=== PATIENT | male | born 1945 | race Caucasian/White ===

== ENCOUNTER 2023-09-28 02:40 | Inpatient (IN) | payer MEDICARE, OTHER, SELFPAY ==
[2023-09-27 22:27] VITALS: BP 80/58
[2023-09-27 22:53] VITALS: BP 111/62
[2023-09-27 22:58] VITALS: BMI 37.0
--- NOTE | 2023-09-27 22:58 | ED.GENMED ---
History of Present Illness
General
Chief Complaint: Weakness
Source: patient and family
Time Seen by Provider: 09/27/23 22:41
Travel History
Have you had any contact with someone who has COVID-19?: No
Do you have any symptoms of coronavirus? Fever > 100 degrees, chills, cough, shortness of breath, sore throat, loss of taste or smell, muscle aches, or headache?: No
History of Present Illness
History of Present Illness:
This patient is a 78-year-old male presents emergency department with complaints of diarrhea that started on Saturday and continues, noted to be 'red-tinged' after have a flavored water ice, no clots or obvious blood. He also notes increasing
malaise/fatigue and intermittent dizziness associated with dyspnea. He denies chest pain, back pain, headache, neck pain. He does note mild lower abdominal comfort that started on Saturday and got worse today. This is without radiation,
exacerbating, relieving factors. He denies urinary symptoms, nausea, vomiting. He has had anorexia over the last few days. When asked about URI symptoms he states that he has had a fever, chills, and intermittent cough that is nonproductive. No
hemoptysis.
Past History
Past History
ED Past Medical History: Arrthythmia, GERD, HTN, Hypercholesterolemia, Other (Chronic kidney disease, Pyelonephritis, Kidney stones, SBO, Right kidney nonfunctioning,) and Other (Gilbert's disease)
ED Past Surgical History: Other (Gastric bypass, cardiac ablation)
Social History
Tobacco: Former smoker
Alcohol: None
Drug: None
Personal:
Living: with family
Family History
Family History: Negative Diabetes, Hypertension or CAD
Phy Exam
Physical Exam
Physical Exam:
GENERAL: Alert but generally weak appearing, in no apparent distress
EYE: pupils equal and reactive, conjunctive a pale
NECK: Supple, no significant adenopathy.
ENT: o/p clr, mm very dry
CARDIAC: Regular rate and rhythm .
LUNGS: Clear breath sounds bilaterally, no acute respiratory distress, no wheezes/rales/rhonchi, no active cough noted
ABDOMEN: Soft, minimal lower midline abdominal tenderness, no r/g, no cvat
NEUROLOGICAL: Alert and oriented, no focal neuro deficits
SKIN: Warm and dry, skin intact.
MUSCULOSKELETAL: No edema, well perfused.
PSYCH: Normal and appropriate interaction.
Rectal RN present, daughter went into the bathroom to give him privacy while we performed, nontender, no active bleed, heme positive
Course
Orders/Labs/Results
Orders:
Orders
09/27/23 22:56
Electrocardiogram (*1) Stat
Reason for Study: Other
Other Reason for Exam: GI Bleed
Cardiac Monitoring- Treatment ONCE
EKG- Treatment ONCE
Urinalysis Reflex To Culture Urgent
Date Specimen was Collected: 09/28/23
Time Specimen was Collected: 01:04
0.9% Sodium Chloride 1000 ml [Nss] 1,000 ml IV NOW STA
CR Chest Portable - 1 View Urgent
Comment:
Reason For Exam: sob
Reason Study Needs to be Portable: Patient Unstable
Pulse Ox/cont/shift [RESP] Stat
Quantity: 1
09/27/23 22:57
Stool Culture Urgent
SANDRA Source: Feces/Stool
Specimen Description:
09/27/23 22:58
CT Abd/pel Without Iv Or Oral Urgent
Comment:
Reason For Exam: abd pain, d
09/27/23 23:04
Complete Blood Count/No Diff Urgent
Comprehensive Metabolic Panel Urgent
NT-proBNP Urgent
Troponin I Urgent
Blood Culture Q30M
SANDRA Source: Blood/Venous
Specimen Description:
09/27/23 23:12
Type+Screen Urgent
TSH Urgent
09/27/23 23:13
COVID-19 Antigen Urgent
Source: Nasal Swab
Lactic Acid Q4H
Comment: CANCEL 2nd LACTIC ACID IF 1st LACTIC ACID IS LESS THAN 2
Influenza A+B Rapid Molecular Urgent
SANDRA Source: Nasal Swab
Specimen Description:
09/27/23 23:45
Blood Culture Q30M
SANDRA Source: Blood/Venous
Specimen Description:
09/28/23 00:56
Piperacillin/Tazo 3.375 Gram [Zosyn] 3.375 gram in 50 ml IV NOW
09/28/23 01:00
0.9% Sodium Chloride 500 ml [Nss] 500 ml IV 150 mls/hr
09/28/23 01:06
Urine Microscopic Reflex Cult Urgent
09/28/23 02:23
Admit/Transfer Patient As Directed
Co-Sign Provider:
Level of Care: Inpatient admission
Assign to:: IMU- Intermediate Care
Physician / Group: Mynor
Diagnosis: Perforated Appendicitis / Diverticulitis, MATT
Reason for Hospitalization: Perforated Appendicitis / Diverticulitis, MATT
Expected length of stay greater than two midnights?: Yes
ELOS- Estimated Length of Stay in days: 4
I certify the patient meets the requirements for IP care: Yes
Alprazolam [Xanax] 1 mg PO NOW STA
09/28/23 02:25
Code Status As Directed
Resuscitation Status: Full Code
09/28/23 03:58
Alprazolam [Xanax] 1 mg PO HS PRN
HYDROmorphone [Dilaudid] 0.5 mg IV Q4HPRN PRN
Lactated Ringers [Lr] 1,000 ml IV 100 mls/hr
Ondansetron Injectable [Zofran] 4 mg IV Q6HPRN PRN
09/28/23 03:58
Consult Notification Routine
Specialty to Notify: Nephrology
NEPHROLOGY CONSULT Routine
Consulting Provider: Joanne Tate
Was physician already notified: No
Reason for consult: MATT on CKD
SURGICAL CONSULT Routine
Consulting Provider: Deng Saucedo
Was physician already notified: Yes
Reason for consult: Perforated Appendicitis / Diverticulitis
Activity As Directed
Activity Level: Bedrest
Bladder Scan As Directed
Follow Bladder Retention/Intermittent Cath Algorithm?: Yes
PRN if no void in __ hours: 6
Frequency: Per Retention Algorithm
If Bladder Scan Result >: 400
then:: Straight cath
EKG with chest pain [ECG as needed] As Directed
ECG as needed for:: Chest Pain
I/O [Intake/ Output] As Directed
Frequency: Per unit guidelines
Pneumatic Compression Sleeves As Directed
Type: Knee high
Straight Cath As Directed
Frequency: Per Retention Algorithm
Additional Instructions: straight cath as needed per acute urinary retention algorithm for 24 hrs
Additional Instructions: for bladder scan greater than 400 mL
Vital Signs As Directed
Frequency: Per unit guidelines
Weight As Directed
Frequency: Daily
Oxygen Therapy [O2 Therapy] [RESP] Routine
Titrate/Wean O2 to maintain O2 sat greater than (%): 94
DX Deep Vein Thrombosis Video Routine
09/28/23 04:27
Basic Metabolic Panel IN AM
Complete Blood Count/No Diff IN AM
LFT [Mjslo-Ewtm-Hjoppjg] IN AM
Magnesium IN AM
Phosphorus IN AM
09/28/23 08:00
Heparin 5,000 units SC Q8
Pantoprazole [Protonix IV] 40 mg IV DAILY
09/28/23 09:00
Piperacillin/Tazo 2.25 Gram [Zosyn] 2.25 grams in 50 ml IV Q8H
09/29/23 Breakfast
NPO
Allow oral meds: Yes
Allow clear liquids: Sips of Clears
Abnormal Lab Results
09/27/23 09/28/23
23:04 01:06
WBC 11.6 H 10^3/uL
(4.8-10.8)
RBC 3.67 L 10^6/uL
(4.70-6.10)
Hgb 12.1 L g/dL
(13.0-18.0)
Hct 34.1 L %
(39.0-52.0)
MCH 33.0 H pg
(27.0-31.0)
MPV 10.9 H fL
(7.4-10.4)
Potassium 3.4 L mmol/L
(3.5-5.1)
Carbon Dioxide 16 L mmol/L
(22-30)
BUN 38 H mg/dl
(9-20)
Creatinine 6.1 H* mg/dL
(0.7-1.3)
Glucose 106 H mg/dl
(70-99)
Calcium 8.2 L mg/dl
(8.4-10.2)
Total Bilirubin 1.6 H mg/dl
(0.2-1.3)
Albumin 3.4 L g/dl
(3.5-5.0)
Urine Ketones Trace A
(Negative)
Ur Occult Blood Reflex 2+ A
(Negative)
Urine Bacteria (Reflex) Few A
(Negative)
09/27/23 23:04
09/27/23 23:04
Vital Signs
Initial and Last Documented VS:
Initial Vital Signs
Temp Pulse Resp BP Pulse Ox
98.2 F 92 28 80/58 98
09/27/23 22:27 09/27/23 22:27 09/27/23 22:27 09/27/23 22:27 09/27/23 22:27
Last Documented Vital Signs
Temp Pulse Resp BP Pulse Ox
98.5 F 84 32 96/56 96
09/28/23 04:25 09/28/23 06:21 09/28/23 06:21 09/28/23 06:21 09/28/23 06:21
*Critical Care Note
Total Time (30-74mins, 75-104mins- exclusive of procedures): Not Applicable
Update Note
Update Note:
Patient presents to the Emergency Department with dyspnea, fatigue, lightheadedness, diarrhea
Number and Complexity of Problems Addressed at the Encounter
� Chronic conditions affecting care:
� Acute Exacerbation and/or Progression of Chronic Illness:
� Differential Diagnosis includes: But not limited to sepsis, GI bleed, renal failure, dehydration, etc. etc.
Amount and/or Complexity of Data to be Reviewed and Analyzed
� I performed an independent evaluation of and my interpretation is:
EKG:nsr, nl rate, no acute ischemia, PVC noted
CT: vebal report CT shows perforation, appendix measuring 10 mm, rads suggests either (1) appendix perf (2) appendix diverticular perfor or (3) diverticulitis perf. (1255 am)
Xrays:cxr nad
Laboratory Studies:Cr elevation (reportedly at baseline), expected acidosis, K near nl, worsening baseline anemia.
Other:
� Review of other/old records reveals: H&P from November 2021 when patient had ablation noted
� Clinical information was obtained by an independent historian: Daughter who is bedside
� Prescriptions/Medications Considered but not given:
� Further testing considered but not performed:
Risk of Complications and/or Morbidity or Mortality of Patient Management
� Social determinants of health affecting care:
� Discussion with other providers (PCP, Hospitalists, Consultants, etc):
� Escalation of care including admission/observation vs risk of discharge considered:Reassessment, pt feels better, although still with mild abd ttp (no r/g). Ct noted. Text immed sent to Dr Saucedo from surgery. In meantime, I
will start abx, continue ivf and closemonitoring. He recommends zosyn,npo,admit hospitalist. Dr Fong aware. Pt and daughter updated.
ED Attending Note
-
Portions of this chart may have been created with voice recognition software.� Occasional wrong word or��sound alike� substitutions may have occurred due to the inherent limitations of voice recognition software.
Discharge Plan
Departure
Patient Disposition: Admit
Date of Disposition: 09/28/23
Time of Disposition: 00:58
Admit to: Telemetry
Admit to doctor: mynor
Presentation/result/management discussed w/ accepting MD/DO: Hospitalist
Condition: Fair
Discharge Problem:
Bowel perforation
Interventions
Interventions:
*Risk Screen - Suicide Last Done: 09/28/23 04:32
*General Assessment Last Done: 09/27/23 23:20
*Neglect/Abuse Screening Last Done: 09/27/23 23:20
ED- Fall Risk Assessment Last Done: 09/27/23 23:20
*ED COVID-19 Vaccine History Last Done: 09/28/23 04:32
*Nursing Disposition Last Done: 09/28/23 03:52
ED- Cardiac Assessment Last Done: 09/27/23 23:20
ED- Neurological Assessment Last Done: 09/27/23 23:20
ED- Pulmonary Assessment Last Done: 09/27/23 23:20
Discharge Date and Time
Discharge Date/Time: 09/28/23 03:53
[2023-09-27 23:00] VITALS: BP 111/61
[2023-09-27] MEDS: NSS 1000 ML IV (23:01)
[2023-09-27 23:09] LABS: Hematocrit 34.1 % (39.0-52.0); Hemoglobin 12.1 g/dL (13.0-18.0); Mean Corp Hgb Conc. 35.5 g/dL (33.0-37.0); Mean Corpuscular Volume 92.9 fL (80.0-94.0); Mean Platelet Volume 10.9 fL (7.4-10.4); Platelet Count 166 10^3/uL (130-400); Red Blood Cell Count 3.67 10^6/uL (4.70-6.10); Red Cell Dist. Width 13.3 % (11.5-14.5); White Blood Cell Count 11.6 10^3/uL (4.8-10.8)
[2023-09-27 23:26] VITALS: BP 108/60
[2023-09-27 23:27] LABS: ALT (SGPT) 15 U/L (0-50); AST (SGOT) 21 U/L (17-59); Albumin 3.4 g/dl (3.5-5.0); Alkaline Phosphatase 114 U/L (38-126); Blood Urea Nitrogen 38 mg/dl (9-20); Calcium 8.2 mg/dl (8.4-10.2); Carbon Dioxide 16 mmol/L (22-30); Chloride 106 mmol/L (98-107); Estimated Creatinine Clearance 14 ml/min; Glucose 106 mg/dl (70-99); Potassium 3.4 mmol/L (3.5-5.1); Sodium 135 mmol/L (135-145); Total Bilirubin 1.6 mg/dl (0.2-1.3); Total Protein 6.4 g/dl (6.3-8.2); eGFR 8.91
[2023-09-27 23:34] LABS: Lactic Acid 1.2 mmol/L (0.7-2.0)
[2023-09-27 23:34] LABS: NT-proBNP 3980 pg/ml; Troponin I 0.017 ng/ml
[2023-09-27 23:38] LABS: COVID-19 Antigen Negative (Negative)
[2023-09-28] VITALS (23 sets, daily range): BP systolic 0–126; BP diastolic 50–80; BMI 37.2
[2023-09-28] MEDS: ZOSYN 50 IV ×3 (01:07→16:08)
[2023-09-28] MEDS: NSS 500 IV (01:16)
[2023-09-28 01:25] LABS: Urine Albumin Trace (Neg - Trace); Urine Bilirubin Negative (Negative); Urine Character Clear (Clear); Urine Color Yellow; Urine Glucose Negative (Negative); Urine Ketone Trace (Negative); Urine Leukocyte Negative (Negative); Urine Nitrite Negative (Negative); Urine Occult Blood 2+ (Negative); Urine Specific Gravity 1.015 (<1.030); Urine Urobilinogen Negative (Neg - 1+)
[2023-09-28 01:34] LABS: Urine Squamous Cell 0-2 /LPF (Few)
[2023-09-28 01:36] LABS: Urine Bacteria Few (Negative); Urine Red Blood Cell None Seen /HPF (0-2)
--- NOTE | 2023-09-28 02:30 | HPS.HSE ---
Family Physician
-
Family Physician: NOT KNOW UNKNOWN - PT DOES
Chief Complaint
-
Fevers / chills / fatigue
History of Present Illness
Patient is a 78y M with PMH significant for A-Fib, CKD and obesity who presents to ED complaining of feeling poorly for the past 5 days or so. Patient states that he started on Saturday with fatigue, poor appetite, lightheadedness and intermittent
fevers. His symptoms have waxed and waned throughout much of the week. Today he noted some very low abdominal discomfort as well as some watery diarrhea.
Patient was encouraged by his family to present to the ED for evaluation. Work up in the ED reveals evidence of perforated appendicitis or diverticulitis.
Medical History
Past Medical History
Past Medical History: Reports Other
Additional Past Medical History:
CKD V
Paroxysmal Atrial Fibrillation
Hypertension
Nephrolithiasis
Solitary Functioning Kidney
Obesity
Anxiety / Insomnia
Past Surgical History: Reports Other
Additional Past Surgical History:
Gastric Bypass ([place])
Open Kidney Stone Removal
Cholecystectomy
PPM Placement
PVI Ablation
Bilateral TKA
Left Ankle ORIF
Social History
Tobacco: Non-smoker
Alcohol: None
Drug: None
Family History
Family History: Not pertinent
Allergies / Home Medications
Allergies reflects when Allergies were last updated in [employer].
Home Medications with original date entered in [employer]
Allergy/Medication List:
Allergies
Allergy/AdvReac Type Severity Reaction Status Date / Time
bee venom protein (honey bee) Allergy Anaphylaxis Verified 09/27/23 22:27
levofloxacin [From Levaquin] Allergy TORE Verified 09/27/23 22:27
ACHILLES
TENDON
oxycodone Allergy NAUSEA/VOMI Verified 09/27/23 22:27
TING
tramadol Allergy Nausea Verified 09/27/23 22:27
seasonal Allergy nasal Uncoded 09/27/23 22:27
congestion
Home Medications
doxazosin 2 mg tablet 4 mg PO HS 09/06/10
potassium citrate 10 mEq (1,080 mg) tablet,extended release 10 meq PO BID Supplement 09/06/10
cetirizine 10 mg tablet 20 mg PO DAILY Allergies 11/26/14
omeprazole 40 mg capsule,delayed release 40 mg PO DAILY Gastrointestinal issue 10/14/17
Phospha 250 Neutral 1 tab PO DAILY 11/29/20
alprazolam 1 mg tablet 2 mg PO HS Mental Health/Anxiety 11/29/20
cholecalciferol (vitamin D3) 25 mcg (1,000 unit) capsule (Vitamin D3) 2,000 unit PO DAILY Supplement 11/29/20
pravastatin 10 mg tablet 10 mg PO HS High cholesterol 10/17/21
rivaroxaban 15 mg tablet (Xarelto) 15 mg PO QPM Blood clot prevention/tx 10/17/21
Review of Systems
-
History Source: Patient
A 12 point ROS was completed and negative except as noted: Yes
Constitutional: Reports Fever, Fatigue and Chills
EENT: Denies Sore Throat
Respiratory: Denies Cough or Trouble Breathing
Cardiac: Denies Chest Pain or Palpitations
Abdomen/GI: Reports Abdominal Pain, Diarrhea and Anorexia; Denies Nausea, Vomiting, Bloody Stools or Black Stools
: Reports Other (Decreased urination.); Denies Dysuria, Frequency or Flank Pain
Musculoskeletal: Reports Edema; Denies Joint Pain
Neurological: Reports Dizzy; Denies Headache
Psych: Denies Depression or Anxiety
Physical Exam
Vital Signs
Vital Signs
Temp Pulse Resp BP Pulse Ox
98.2 F 75 14 102/69 96
09/27/23 22:27 09/28/23 01:41 09/28/23 01:41 09/28/23 01:39 09/28/23 01:41
Physical Exam
General: Other (78y M in no acute distress.)
HEENT: Moist mucous membranes, PERRLA and Other (Thick neck.)
Respiratory: Clear; No Wheezes, Rales or Rhonchi
Cardiac: S1/S2 and Regular Rhythm; No Murmur
GI: Other (Obese. Abdomen is soft. Bowel sounds are present. Tenderness in RLQ / suprapubic area without rebound / guarding.)
Musculoskeletal: No Clubbing, No Cyanosis and No Edema
Neuro: AO x 3
Laboratory Results
-
09/27/23 23:04
09/27/23 23:04
Laboratory Results
Lactic Acid Cancelled 09/28/23 03:00
Total Bilirubin 1.6 mg/dl (0.2-1.3) H 09/27/23 23:04
AST 21 U/L (17-59) 09/27/23 23:04
ALT 15 U/L (0-50) 09/27/23 23:04
Alkaline Phosphatase 114 U/L (38-126) 09/27/23 23:04
Troponin I 0.017 ng/ml 09/27/23 23:04
Impression/Plan
-
A/P: Patient is a 78y M with PMH significant for PA-Fib, CKD and obesity who presents to ED complaining of feeling poorly for about one week.
Perforated Appendicitis v Diverticulitis
- Admit for further evaluation and treatment.
- IV abx with renally-dosed Zosyn.
- Surgery consulted for further evaluation - will likely require operative intervention / appendectomy.
- Supportive care with IVFs, pain control, etc.
MATT on CKD V
Non-Functioning Right Kidney
Mild Hypokalemia
Non-Gapped Metabolic Acidosis
- SCr = 6.1 with recent baseline of 5.1 (July) and fairly rapid progression over the past 6 months (previously 2.1).
- IVF support as noted above.
- Treat underlying infectious process.
- Nephrology evaluation for additional recommendations.
- Avoid nephrotoxic agents and endeavor to avoid hypotension.
- Adjust IVFs for improvement in labs / lytes.
- Follow for return to baseline.
Paroxysmal Atrial Fibrillation
- Stable. PPM in place. Patient on no meds for chronic rate / rhythm control.
- Hold Xarelto acutely for possible OR.
- Monitor on tele.
Anxiety / Insomnia
- Stable. Continue nightly alprazolam PRN at lower dose.
- Patient notes that he has been taking 2mg of alprazolam nightly for the past 20 years.
Obesity due to excess calories
- s/p prior gastric bypass. More recent weight gain (during COVID).
- Affects all aspects of care.
- Encourage healthy diet / increased activity with goal of weight loss.
DVT Prophylaxis: Subcut Heparin
Code Status: Full
[2023-09-28] MEDS: XANAX 1 MG PO ×2 (02:33→22:57)
--- NOTE | 2023-09-28 03:58 | PTCARENOTE ---
Received pt from ED via stretcher. Pt AAOx3 but drowsy. States pain level is 3/10 when not moving. Incontinent of liquid stool. Abd is tender on palpation; non distended. VSS at this time. Resting in bed with call beltran in reach.
[2023-09-28] MEDS: LR 1000 IV (04:10)
[2023-09-28 04:45] LABS: Hematocrit 30.1 % (39.0-52.0); Hemoglobin 10.3 g/dL (13.0-18.0); Mean Corp Hgb Conc. 34.2 g/dL (33.0-37.0); Mean Corpuscular Hgb 32.5 pg (27.0-31.0); Mean Platelet Volume 11.2 fL (7.4-10.4); Platelet Count 147 10^3/uL (130-400); Red Blood Cell Count 3.17 10^6/uL (4.70-6.10); Red Cell Dist. Width 12.8 % (11.5-14.5); White Blood Cell Count 11.7 10^3/uL (4.8-10.8)
[2023-09-28 05:21] LABS: ALT (SGPT) 13 U/L (0-50); AST (SGOT) 20 U/L (17-59); Albumin 2.6 g/dl (3.5-5.0); Alkaline Phosphatase 89 U/L (38-126); Blood Urea Nitrogen 38 mg/dl (9-20); Calcium 7.8 mg/dl (8.4-10.2); Carbon Dioxide 16 mmol/L (22-30); Chloride 109 mmol/L (98-107); Direct Bilirubin 0.6 mg/dl (0.0-0.4); Estimated Creatinine Clearance 15 ml/min; Glucose 95 mg/dl (70-99); Magnesium 1.9 mg/dl (1.6-2.3); Phosphorus 4.8 mg/dl (2.5-4.5); Potassium 3.3 mmol/L (3.5-5.1); Sodium 135 mmol/L (135-145); Total Bilirubin 1.6 mg/dl (0.2-1.3); Total Protein 5.2 g/dl (6.3-8.2); eGFR 9.87
[2023-09-28] MEDS: KCL 260 MEQ IV (06:29)
[2023-09-28] MEDS: PROTONIX IV 40 MG IV (08:45)
--- NOTE | 2023-09-28 08:47 | W.CON.NEPH ---
Consultation
-
Date/Time Consultation Requested: 09/28/23 3:58AM
Date/Time Consultation Performed: 09/28/23 1:23PM
Requesting Provider: Chidi Fong
Performing Provider: Joanne Tate
Reason for Consultation: MATT on CKD
Medical History
-
Chief Complaint: MATT on CKD
History of Present Illness:
Mr. Henriquez is a 78YOM with PMH of CKD, HTN, kidney stones, R atrophic kidney, AFIB, sleep apnea (on CPAP) who presents to the hospital for diarrhea. He was found to have an MATT on CKD for which we are consulted.
Has been spending a weekend in [place], developed diarrhea and fevers. as high as 103 per the patient.
The patient follows with Dr. Handley. His Cr has been ranging from 4-5 in the outpatient setting. 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 Biopsy was considered but eventually not pursued. He has a solitary
functioning kidney. He did state that he would accept dialysis if need arose.
He takes Urocit for nephrolithiaisis, he is on multi drug therapy for hypertension. His Afib is stable on Xarelto.
Past Medical History
CKD V
PAfib
HTN
Nephrolithiasis
solitary functioning kidney
obesity
anxiety/insomnia
Past Surgical History: Other (gastric bypass, open kidney stone removal, Cholecystectomy, PPM Placement, PVI Ablation, Bilateral TKA Left Ankle ORIF)
Social History
Tobacco: Non-Smoker
Alcohol: None
Drug: None
Living: With Family
Family History
Family History: Not Pertinent
Allergies / Home Medications
Allergy/AdvReac Type Severity Reaction Status Date / Time
bee venom protein (honey bee) Allergy Anaphylaxis Verified 09/27/23 22:27
levofloxacin [From Levaquin] Allergy TORE Verified 09/27/23 22:27
ACHILLES
TENDON
oxycodone Allergy NAUSEA/VOMI Verified 09/27/23 22:27
TING
tramadol Allergy Nausea Verified 09/27/23 22:27
seasonal Allergy nasal Uncoded 09/27/23 22:27
congestion
�Medication �Instructions �Recorded �Confirmed �Type
doxazosin 2 mg tablet 4 mg PO HS 09/06/10 09/28/23 History
potassium citrate 10 mEq (1,080 10 meq PO BID Supplement 09/06/10 09/28/23 History
mg) tablet,extended release
cetirizine 10 mg tablet 20 mg PO DAILY Allergies 11/26/14 09/28/23 History
omeprazole 40 mg capsule,delayed 40 mg PO DAILY Gastrointestinal 10/14/17 09/28/23 History
release issue
Phospha 250 Neutral 1 tab PO DAILY 11/29/20 09/28/23 History
alprazolam 1 mg tablet 2 mg PO HS Mental Health/Anxiety 11/29/20 09/28/23 History
cholecalciferol (vitamin D3) 25 2,000 unit PO DAILY Supplement 11/29/20 09/28/23 History
mcg (1,000 unit) capsule (Vitamin
D3)
pravastatin 10 mg tablet 10 mg PO HS High cholesterol 10/17/21 09/28/23 History
rivaroxaban 15 mg tablet (Xarelto) 15 mg PO QPM Blood clot 10/17/21 09/28/23 History
prevention/tx
Review of Systems
-
History Source: Patient
All other systems: Negative unless noted
Constitutional: Fever and Fatigue
Abdomen/GI: Abdominal Pain and Diarrhea
Physical Exam
Vital Signs
Vital Signs
Temp Pulse Resp BP Pulse Ox
99.2 F 84 32 96/56 96
09/28/23 07:00 09/28/23 06:21 09/28/23 06:21 09/28/23 06:21 09/28/23 06:21
Lab Results
WBC 11.7 10^3/uL (4.8-10.8) H 09/28/23 04:27
RBC 3.17 10^6/uL (4.70-6.10) L 09/28/23 04:27
Hgb 10.3 g/dL (13.0-18.0) L 09/28/23 04:27
Hct 30.1 % (39.0-52.0) L 09/28/23 04:27
Plt Count 147 10^3/uL (130-400) 09/28/23 04:27
Sodium 135 mmol/L (135-145) 09/28/23 04:27
Potassium 3.3 mmol/L (3.5-5.1) L 09/28/23 04:27
Chloride 109 mmol/L (98-107) H 09/28/23 04:27
Carbon Dioxide 16 mmol/L (22-30) L 09/28/23 04:27
BUN 38 mg/dl (9-20) H 09/28/23 04:27
Creatinine 5.6 mg/dL (0.7-1.3) H* 09/28/23 04:27
eGFR 9.87 09/28/23 04:27
Glucose 95 mg/dl (70-99) 09/28/23 04:27
Calcium 7.8 mg/dl (8.4-10.2) L 09/28/23 04:27
Phosphorus 4.8 mg/dl (2.5-4.5) H 09/28/23 04:27
Aae-C-Xvtuvnjcwxf Pept 3980 pg/ml 09/27/23 23:04
Albumin 2.6 g/dl (3.5-5.0) L 09/28/23 04:27
Physical Exam
General: AOx3, No Distress and Nontoxic
HEENT: PERRL, EOMI, Anicteric, Conjunctivae Clear, Ear/Nose Intact, Hearing Normal, Oropharynx Clear/Moist, Dentition Intact, Facial Symmetry, Neck Supple, Trachea Midline and No JVD
Respiratory: Clear
Cardiac: S1/S2
Breast: N/A
Abdomen: Soft, Normal Bowel Sounds and Other (tender, distended)
Rectal: Deferred by Provider
Genito-urinary: Other (no dempsey in place)
Musculoskeletal: No Clubbing, No Cyanosis and No Edema
Skin: No Rash, Warm and Dry
Neuro: Nonfocal/Grossly Intact
Hematologic/Lymphatic: Other
Psych: Mood/afflect pleasant and Insight/judgement good
Data Reviewed
-
CT Scan: Report Reviewed by me (c/f perforated appendicitis)
Assessment/Plan
-
Assessment:
MATT on CKD IV
solitary functioning kidney
perforated appendicitis v diverticullitis
pAfib
anxiety/insomnia
obesity
Plan:
- imaging without s/s of calculus in functional L kidney
- UA notable for some blood but no protein
- encouraged Dempsey placement
- MATT likely in the setting of pre-renal disease/ATN
- patient does not want dialysis
- bicarb gtt ordered
The plan will be for supportive management at this point. Patient is not a good candidate for biopsy and does not want dialysis.
--- NOTE | 2023-09-28 09:49 | PTCARENOTE ---
Assumed care of pt from night RN. Pt AAOx3, makes needs known. C/O abdominal tenderness, hypoactive bowel sounds, multiple episodes of incontinence of rust colored stool, incontinence care completed as needed. Heparin held this AM per Dr. Saucedo as
pt for surgery this afternoon. Daughter at bedside and updated. Will continue to monitor through shift.
--- NOTE | 2023-09-28 10:00 | W.PN.UPDATE ---
Update Note
Progress Note Update
Nonbillable note
See admission H&P from Dr Fong for detailed information
Patient seen and focus examination done
Chart reviewed and CT imaged intrepreted personally.
Patient have perofated appendicitis, remains NPO currently
GS evaluated and patient going to OR today
Continue holding xarelto
[2023-09-28] MEDS: SODIUM BICARBONATE 1150 MEQ IV ×2 (10:30→19:41)
--- NOTE | 2023-09-28 11:03 | CON.GS ---
Medical History
-
Chief Complaint: Abdominal pain
History of Present Illness:
Patient is a 78 yo M with a PMH of morbid obesity s/p laparoscopic RYGB, GERD, HTN, HLD, A-fib (on Xarelto, LD 09/25 PM) s/p PPM and ablation, nephrolithiasis s/p open nephrectomy c/b CKD stage V, s/p bilateral TKA, s/p laparoscopic cholecystectomy.
Plan Mr. Negrete states that he started to feel unwell approximately 5 to 6 days ago. He then developed abdominal pain within the suprapubic and RLQ. Associated subjective fevers. Notes some looser nonbloody stools. No nausea or vomiting.
No personal or family history of GI issues. Prior colonoscopy greater than 5 years ago reported to have removal of polyps, no report of diverticulitis. No prior attacks of diverticulitis. Currently he states that his pain is mildly improved,
though not completely resolved.
Past Medical History
Past Medical History: Arrhythmias (A-fib), GERD, HTN, Hypercholesterolemia, Renal Failure and Other (Obesity)
Past Surgical History: Bariatric, Cholecystectomy, Orthopedic (Bilateral TKA, LEFT ankle ORIF) and Urological (Open nephrectomy)
Social History
Tobacco: Non-Smoker
Alcohol: None
Drug: None
Family History
Family History: Reviewed & Noncontributory
Allergies / Home Medications
Allergy/AdvReac Type Severity Reaction Status Date / Time
bee venom protein (honey bee) Allergy Anaphylaxis Verified 09/27/23 22:27
levofloxacin [From Levaquin] Allergy TORE Verified 09/27/23 22:27
ACHILLES
TENDON
oxycodone Allergy NAUSEA/VOMI Verified 09/27/23 22:27
TING
tramadol Allergy Nausea Verified 09/27/23 22:27
seasonal Allergy nasal Uncoded 09/27/23 22:27
congestion
�Medication �Instructions �Recorded �Confirmed �Type
doxazosin 2 mg tablet 4 mg PO HS 09/06/10 09/28/23 History
potassium citrate 10 mEq (1,080 10 meq PO BID Supplement 09/06/10 09/28/23 History
mg) tablet,extended release
cetirizine 10 mg tablet 20 mg PO DAILY Allergies 11/26/14 09/28/23 History
omeprazole 40 mg capsule,delayed 40 mg PO DAILY Gastrointestinal 10/14/17 09/28/23 History
release issue
Phospha 250 Neutral 1 tab PO DAILY 11/29/20 09/28/23 History
alprazolam 1 mg tablet 2 mg PO HS Mental Health/Anxiety 11/29/20 09/28/23 History
cholecalciferol (vitamin D3) 25 2,000 unit PO DAILY Supplement 11/29/20 09/28/23 History
mcg (1,000 unit) capsule (Vitamin
D3)
pravastatin 10 mg tablet 10 mg PO HS High cholesterol 10/17/21 09/28/23 History
rivaroxaban 15 mg tablet (Xarelto) 15 mg PO QPM Blood clot 10/17/21 09/28/23 History
prevention/tx
Review of Systems
-
A 10 point review of systems was completed, and was negative except as per HPI.
Physical Exam
Vital Signs
Temp Pulse Resp BP Pulse Ox
99.2 F 84 32 96/56 97
09/28/23 07:00 09/28/23 06:21 09/28/23 06:21 09/28/23 06:21 09/28/23 07:45
09/27/23 09/28/23 09/29/23
06:59 06:59 06:59
Actual Weight 124.3 kg
Body Mass Index (BMI) 37.2
Lab Results
09/28/23 04:27
09/28/23 04:27
WBC 11.7 10^3/uL (4.8-10.8) H 09/28/23 04:27
Hgb 10.3 g/dL (13.0-18.0) L 09/28/23 04:27
Hct 30.1 % (39.0-52.0) L 09/28/23 04:27
Plt Count 147 10^3/uL (130-400) 09/28/23 04:27
Physical Exam
General: Well Developed, Well Nourished and No Apparent Distress
Respiratory: Non Labored Respirations
Cardiac: Regular Rhythm
GI: Soft, Non Distended, Tender (RLQ with deep palpation), Incisions (Midline incision well-healed), Obese (Limits exam) and Other (Nonperitoneal)
Musculoskeletal: No Edema
Skin: Warm and Dry
Neuro: Nonfocal/Grossly Intact
Data Reviewed
-
CT Scan: Image Personally Visualized and interpreted and Report Reviewed by me
Labs: Labs Reviewed by me
Assessment / Plan
-
Patient is a 78 yo M p/w perforated appendicitis versus perforated diverticulitis
CT scan imaging was reviewed. Most likely perforated appendicitis based on this imaging, however, perforated diverticulitis remains in the differential. Phlegmonous inflammation with scattered air, no definitive abscess formation. The natural
history and pathophysiology of both appendicitis and diverticulitis were reviewed. Options for management including medical management with antibiotics with the likelihood of needing a repeat CT scan and potential IR drainage versus proceeding with
surgical intervention at this time were considered and discussed. The pros and cons of both approaches was discussed. We specifically discussed that he is at increased risk for operative bleeding given his Xarelto use as well as complicating
factors of his obesity. We also discussed the potential for needing to perform an open operation with ostomy formation pending operative findings. Patient and daughter acknowledged understanding and wished to proceed with surgery.
Plan for a laparoscopic appendectomy, possible exploratory laparotomy, possible bowel resection with ostomy. The procedure itself, as well as the risks, benefits, and alternatives was discussed. Specifically, we discussed the risks of bleeding,
infection, injury to surrounding structures (bowel, bladder), need for open procedure, hernia formation, and complications from general anesthesia. Typical postprocedural recovery was discussed. All questions answered. Consent signed.
-- Laparoscopic appendectomy, possible exploratory laparotomy, possible bowel resection with ostomy
-- NPO, IVF
-- Zosyn
-- Hold Xarelto
--- NOTE | 2023-09-28 11:14 | W.SUR.PREOP ---
Pre-Operative Surgical Note
-
I have examined this patient prior to the performance of the scheduled procedure.
The patient's condition is unchanged from the time of the current History and
Physical and the patient is able to undergo the scheduled procedure.
[2023-09-28 12:36] LABS: INR 1.58; PT 18.6 Sec (11.4-14.6)
--- NOTE | 2023-09-28 12:36 | PTCARENOTE ---
Pt cleaned with CHG wipes and betadine nasal swabs for surgery, bed linens changed. Report given to ENGINE ASSEMBLER. Pt transported in bed to OR.
--- NOTE | 2023-09-28 14:55 | W.IMMPOSTOP ---
Surgical Immed Post Op Note
-
Primary Surgeon: Sheryl
Assisting Surgeon: None
Pre-op Diagnosis: Acute perforated appendicitis
Post-op Diagnosis: Acute perforated cecum
Procedure Performed: Laparoscopic partial cecectomy and drainage of intra-abdominal abscess
Anesthesia Type: General
Specimen / Cultures:
1. Appendix and portion of cecum
Estimated Blood Loss: 7 cc
Complications: None
Operative Findings:
1. Severely inflamed RLQ involving appendix and cecum immediately adjacent to the appendiceal orifice, perforation secondary to an appendicolith
2. Mobilization of the cecum with drainage of abscess pocket inferiorly to the cecum, mesentery of the appendix taken with a LigaSure device
3. Appendectomy and partial cecectomy performed with 2 firings of PRAKASH 60 purple load stapler and 1 firing of a PRAKASH 30 purple load stapler
4. TI maintained, no leakage from staple line with palpation and grossly intact
5. 19 Yoruba Sergio drain into pelvis and overlying RLQ stable
[2023-09-28 14:56] LABS: Glucose - Point of Care 107 mg/dl (70-99)
[2023-09-28] MEDS: DILAUDID 0.5 MG IV ×2 (18:37→22:55)
[2023-09-28] MEDS: PRAVACHOL 10 MG PO (23:11)
[2023-09-29] VITALS (10 sets, daily range): BP systolic 106–149; BP diastolic 62–102; BMI 37.5
[2023-09-29] MEDS: ZOSYN 50 IV ×3 (00:48→18:10)
[2023-09-29 04:29] LABS: Hematocrit 28.6 % (39.0-52.0); Hemoglobin 10.2 g/dL (13.0-18.0); Mean Corp Hgb Conc. 35.7 g/dL (33.0-37.0); Mean Corpuscular Hgb 32.9 pg (27.0-31.0); Mean Corpuscular Volume 92.3 fL (80.0-94.0); Mean Platelet Volume 10.9 fL (7.4-10.4); Platelet Count 167 10^3/uL (130-400); Red Cell Dist. Width 13.2 % (11.5-14.5); White Blood Cell Count 10.4 10^3/uL (4.8-10.8)
[2023-09-29 04:53] LABS: Blood Urea Nitrogen 39 mg/dl (9-20); Calcium 7.9 mg/dl (8.4-10.2); Carbon Dioxide 18 mmol/L (22-30); Chloride 106 mmol/L (98-107); Estimated Creatinine Clearance 18 ml/min; Glucose 129 mg/dl (70-99); Potassium 3.8 mmol/L (3.5-5.1); Sodium 135 mmol/L (135-145); eGFR 12.18
[2023-09-29] MEDS: HEPARIN 5000 UNITS SC ×3 (05:26→22:48)
--- NOTE | 2023-09-29 05:40 | PTCARENOTE ---
No acute events overnight. Remains on 1 liter NC. B[address]t in place. Left abd ARELY drain with 40 ml serosanguineous output.
[2023-09-29] MEDS: SODIUM BICARBONATE 1150 MEQ IV (07:59)
[2023-09-29] MEDS: PROTONIX IV 40 MG IV (08:00)
--- NOTE | 2023-09-29 08:44 | W.PN.HOSP.TC ---
Today's Communication/Plan
-
see note
downgrade to surgical floor
Assessment / Plan
Assessment / Plan
Patient is a 78y M with PMH significant for PA-Fib, CKD and obesity who presents to ED complaining of feeling poorly for about one week.
Perforated Appendicitis
-Underwent laparoscopic partial cecectomy and drainage of intra-abdominal abscess on 09/27
-POD #1 today, complaining some right lower quadrant abdominal pain. Abdominal ARELY drain output 50 mL of sanguinous fluid.
-WBC has been normalized. remains afebrile in night.
-No intraoperative culture collected.
-Currently on empiric Zosyn, discussed with general surgery and plan to manage.
-Started on clear liquid diet.
-Discussed with general surgery and patient will need to be restarted back on Xarelto home dose after 72 hours.
-PT/OT after surgical clearance.
Dyspnea
-Patient feeling minimal dyspnea.
-Minute basilar crackles possible atelectasis versus congestion
-Decrease IV fluid rate to 60mls/hr. could be discontinued if tolerated clear liquid diet today.
-IS ordered
-CXR if symptoms progress or hypoxia develops
MATT on CKD V
Non-Functioning Right Kidney
Mild Hypokalemia
Non-Gapped Metabolic Acidosis
-SCr = 6.1 with recent baseline of 5.1 (July) and fairly rapid progression over the past 6 months (previously 2.1).
-Nephrology following and help appreciated.
-Indwelling Lemus catheter to remain until nephrology clearance.
-Starting oral bicarb.
Paroxysmal Atrial Fibrillation
h/o PPM
-Patient on no meds for chronic rate / rhythm control.
-Xarelto can be resumed 72 hours post surgery
Anxiety / Insomnia
- Stable. Continue nightly alprazolam PRN at lower dose.
- Patient notes that he has been taking 2mg of alprazolam nightly for the past 20 years.
Obesity due to excess calories
- s/p prior gastric bypass. More recent weight gain (during COVID).
- Affects all aspects of care.
- Encourage healthy diet / increased activity with goal of weight loss.
DVT Prophylaxis: Subcu Heparin
Code Status: Full
Discussed care with GS/ID.
Anticipated Discharge: > 48 hours
Subjective/Interval History
-
Date of Service: September 29, 2023
Resting comfortably in bed
Denies having some shortness of breath, no hypoxia
Some right lower quadrant abdominal pain, no nausea or vomiting overnight
Remains afebrile
Objective Data
-
Labs:
Laboratory Results
09/29/23
04:00
WBC 10.4
Hgb 10.2 L
Hct 28.6 L
Plt Count 167
Sodium 135
Potassium 3.8
Chloride 106
Carbon Dioxide 18 L
BUN 39 H
Creatinine 4.7 H*
Glucose 129 H
Calcium 7.9 L
Vital Signs:
Vital Signs
Temp Pulse Resp BP Pulse Ox
97.4 F 67 16 113/78 95
09/29/23 04:01 09/29/23 06:00 09/29/23 06:00 09/29/23 06:00 09/29/23 06:00
I&O
09/28/23 09/29/23 09/30/23
06:59 06:59 06:59
Intake Total 1400 / 1400
Output Total 125 / 125 1133 / 1133
Balance -125 / -125 267 / 267
Review of Systems
-
Respiratory: Reports No Symptoms
Cardiac: Reports No Symptoms
Abdomen/GI: Reports No Symptoms
Physical Exam
-
General: No Apparent Distress and Comfortable
HEENT: Negative Oxygen
Respiratory: Clear to Auscultation
Cardiac: Regular Rhythm and S1/S2; Negative Murmur or Rub
GI: Soft, Tender (RLQ) and Other (ARELY drain in place)
Genito-urinary: Lemus (Clear urine)
Musculoskeletal: No Edema
Neuro: Awake, Alert, Oriented, No Motor Deficits and Nonfocal/Grossly Intact
Psych: Calm
--- NOTE | 2023-09-29 08:53 | W.PN.GS2 ---
Today's Communication / Plan
-
-- Clears
-- DVT: SQH, hold on therapeutic anticoagulation for 72 hrs post-op
-- Maintain ARELY for 7 days post-op
-- Abx: Zosyn, will need 10-14 days post op
-- OOB/ambulate
Assessment / Plan
-
Patient is a 78 yo M POD#1 s/p laparoscopic appendectomy and partial sick ectomy with drainage of intra-abdominal abscess for perforated appendicitis
Recovering well. No major postoperative concerns. High risk for ileus given severity of disease. Plan for trial of clears today. Hold therapeutic anticoagulation for 72 hours postoperatively.
-- Clears
-- Pain control: Tylenol and IV Dilaudid PRN
-- DVT: SQH, hold on therapeutic anticoagulation for 72 hrs post-op
-- Maintain ARELY for 7 days post-op
-- Abx: Zosyn, will need 10-14 days post op
-- OOB/ambulate
Subjective Data
-
Date of Service: September 29, 2023
Reports soreness with coughing. No nausea or vomiting. Reports passing flatus and had a loose 'accident' overnight. No fevers. Minimal ambulation. Lemus in place.
Objective Data
-
Intake and Output
09/28/23 09/29/23 09/30/23
06:59 06:59 06:59
Intake Total 1400 / 1400
Output Total 125 / 125 1133 / 1133
Balance -125 / -125 267 / 267
Intake:
IV fluids (Total) 1300 / 1300
Normosol 100 / 100
IV piggybacks 100 / 100
Output:
Drain Output (Total)
Left Abdomen Moi-Rodriguez
Urine, Lemus 1075 / 1075
Urine, Voided 125 / 125
Other:
Number of unmeasured liquid
stools
Rectum 1
Vital Signs
Temp Pulse Resp BP Pulse Ox
97.4 F 67 16 113/78 95
09/29/23 04:01 09/29/23 06:00 09/29/23 06:00 09/29/23 06:00 09/29/23 06:00
Lab Results
09/29/23 04:00
09/29/23 04:00
Calcium 7.9 mg/dl (8.4-10.2) L 09/29/23 04:00
Phosphorus 4.8 mg/dl (2.5-4.5) H 09/28/23 04:27
Magnesium 1.9 mg/dl (1.6-2.3) 09/28/23 04:27
Total Bilirubin 1.6 mg/dl (0.2-1.3) H 09/28/23 04:27
Direct Bilirubin 0.6 mg/dl (0.0-0.4) H 09/28/23 04:27
AST 20 U/L (17-59) 09/28/23 04:27
ALT 13 U/L (0-50) 09/28/23 04:27
Alkaline Phosphatase 89 U/L (38-126) 09/28/23 04:27
Total Protein 5.2 g/dl (6.3-8.2) L 09/28/23 04:27
Albumin 2.6 g/dl (3.5-5.0) L 09/28/23 04:27
Physical Exam
-
Gen: NAD
Abd: soft, obese, mild tenderness, difficult to assess distension, non-peritoneal, incisions c/d/i - no erythema, ecchymosis or drainage, ARELY serosang
[2023-09-29] MEDS: SODIUM BICARBONATE 650 MG PO ×2 (08:56→20:43)
--- NOTE | 2023-09-29 11:10 | W.PN.NEPH.PH ---
Today's Communication / Plan
-
- trend BMPs
Assessment/Plan
-
Assessment:
MATT on CKD IV
solitary functioning kidney
perforated appendicitis now s/p laproscopic appendectomy
pAfib
anxiety/insomnia
obesity
Plan:
- s/p appendectomy and partick cecetomy with drainage of intrabd abscess
- Cr peak at 6.1, now down to 4.7
- MATT likely in the setting of pre-renal disease/ATN
- imaging without s/s of calculus in functional L kidney
- UA notable for some blood but no protein
- Lemus in place, would continue at this time to accurately measure I/Os
- okay to hold off on IVF as patient is tolerating PO diet
- patient does not want dialysis
The plan will be for supportive management at this point. Patient is not a good candidate for biopsy and does not want dialysis.
-
-
Date of Service: September 29, 2023
CC / HPI / ROS
-
Chief Complaint:
MATT on CKD
History of Present Illness:
Cr up to 6.1, down to 4.7
good UOP
s/p appendectomy
Review of Systems:
pain post op
Labs
-
Labs:
WBC 10.4 10^3/uL (4.8-10.8) 09/29/23 04:00
RBC 3.10 10^6/uL (4.70-6.10) L 09/29/23 04:00
Hgb 10.2 g/dL (13.0-18.0) L 09/29/23 04:00
Hct 28.6 % (39.0-52.0) L 09/29/23 04:00
Plt Count 167 10^3/uL (130-400) 09/29/23 04:00
Sodium 135 mmol/L (135-145) 09/29/23 04:00
Potassium 3.8 mmol/L (3.5-5.1) 09/29/23 04:00
Chloride 106 mmol/L (98-107) 09/29/23 04:00
Carbon Dioxide 18 mmol/L (22-30) L 09/29/23 04:00
BUN 39 mg/dl (9-20) H 09/29/23 04:00
Creatinine 4.7 mg/dL (0.7-1.3) H* 09/29/23 04:00
eGFR 12.18 09/29/23 04:00
Glucose 129 mg/dl (70-99) H 09/29/23 04:00
Calcium 7.9 mg/dl (8.4-10.2) L 09/29/23 04:00
Phosphorus 4.8 mg/dl (2.5-4.5) H 09/28/23 04:27
Kto-F-Nlwzrielble Pept 3980 pg/ml 09/27/23 23:04
Albumin 2.6 g/dl (3.5-5.0) L 09/28/23 04:27
Physical Exam
-
Vital Signs:
Vital Signs
Temp Pulse Resp BP Pulse Ox
97.4 F 60 18 133/76 96
09/29/23 04:01 09/29/23 08:01 09/29/23 08:01 09/29/23 08:01 09/29/23 09:19
Cardiovascular:: Regular rate and rhythm
Respiratory:: Bilateral: Coarse
Lung Excursion:: Normal
Abdomen:: Nontender and Soft
Bowel Sounds:: Normal
Extremity Edema:: None: Bilateral:
Lemus Catheter: Yes
[2023-09-29] MEDS: DILAUDID 0.5 MG IV ×3 (12:36→22:47)
[2023-09-29] MEDS: PRAVACHOL 10 MG PO (22:48)
[2023-09-29] MEDS: XANAX 1 MG PO (23:05)
[2023-09-30] MEDS: ZOSYN 50 IV ×3 (00:57→16:54)
[2023-09-30] MEDS: TYLENOL 1000 MG PO (03:25)
[2023-09-30 04:55] VITALS: BMI 38.1
[2023-09-30] MEDS: HEPARIN 5000 UNITS SC ×3 (05:54→21:59)
[2023-09-30 06:13] LABS: Hematocrit 27.3 % (39.0-52.0); Hemoglobin 9.7 g/dL (13.0-18.0); Mean Corp Hgb Conc. 35.5 g/dL (33.0-37.0); Mean Corpuscular Hgb 33.4 pg (27.0-31.0); Mean Corpuscular Volume 94.1 fL (80.0-94.0); Mean Platelet Volume 11.2 fL (7.4-10.4); Platelet Count 168 10^3/uL (130-400); Red Cell Dist. Width 12.5 % (11.5-14.5); White Blood Cell Count 9.7 10^3/uL (4.8-10.8)
[2023-09-30 06:47] LABS: Blood Urea Nitrogen 40 mg/dl (9-20); Calcium 7.8 mg/dl (8.4-10.2); Carbon Dioxide 19 mmol/L (22-30); Chloride 106 mmol/L (98-107); Estimated Creatinine Clearance 21 ml/min; Glucose 94 mg/dl (70-99); Potassium 3.4 mmol/L (3.5-5.1); Sodium 134 mmol/L (135-145); eGFR 14.35
[2023-09-30 07:35] VITALS: BP 125/70
--- NOTE | 2023-09-30 08:22 | W.PN.GS2 ---
Today's Communication / Plan
-
-- Fulls
-- Oxycodone if needed
Assessment / Plan
-
Patient is a 78 yo M POD#2 s/p laparoscopic appendectomy and partial cecectomy with drainage of intra-abdominal abscess for perforated appendicitis
Recovering well. No major postoperative concerns. High risk for ileus given severity of disease. Plan for trial of fulls today. Hold therapeutic anticoagulation for 72 hours postoperatively.
-- Fulls
-- Pain control: Tylenol, Oxycodone, IV Dilaudid PRN
-- DVT: SQH, hold on therapeutic anticoagulation for 72 hrs post-op
-- Maintain ARELY for 7 days post-op
-- Abx: Zosyn, will need 10-14 days post op
-- OOB/ambulate
Subjective Data
-
Date of Service: September 30, 2023
Abdominal soreness yesterday, improved and resolved this AM. Mild nausea overnight, improved and resolved this AM. Reports passing flatus. No vomiting. Afebrile.
Objective Data
-
Intake and Output
09/29/23 09/30/23 06/08/20
06:59 06:59 06:59
Intake Total 1400 / 1400 50 / 50
Output Total 1133 / 1133 1735 / 1735
Balance 267 / 267 -1685 / -1685
Intake:
IV fluids (Total) 1300 / 1300
Normosol 100 / 100
IV piggybacks 100 / 100 50 / 50
Output:
Drain Output (Total) 58 58 60 / 60
Left Abdomen Moi-Rodriguez 58 58 60 / 60
Urine, Lemus 1075 / 1075 1675 / 1675
Other:
Number of unmeasured liquid
stools
Rectum 1
Vital Signs
Temp Pulse Resp BP Pulse Ox
98.0 F 61 17 125/70 96
09/30/23 07:35 09/30/23 07:35 09/30/23 07:35 09/30/23 07:35 09/30/23 07:35
Lab Results
09/30/23 04:52
09/30/23 04:52
Calcium 7.8 mg/dl (8.4-10.2) L 09/30/23 04:52
Phosphorus 4.8 mg/dl (2.5-4.5) H 09/28/23 04:27
Magnesium 1.9 mg/dl (1.6-2.3) 09/28/23 04:27
Total Bilirubin 1.6 mg/dl (0.2-1.3) H 09/28/23 04:27
Direct Bilirubin 0.6 mg/dl (0.0-0.4) H 09/28/23 04:27
AST 20 U/L (17-59) 09/28/23 04:27
ALT 13 U/L (0-50) 09/28/23 04:27
Alkaline Phosphatase 89 U/L (38-126) 09/28/23 04:27
Total Protein 5.2 g/dl (6.3-8.2) L 09/28/23 04:27
Albumin 2.6 g/dl (3.5-5.0) L 09/28/23 04:27
Physical Exam
-
Gen: NAD
Abd: soft, obese, minimal tenderness, ND, non-peritoneal, incisions c/d/i - no erythema, ecchymosis or drainage, ARELY serosang, mild fibrinous debris hold
[2023-09-30] MEDS: PROTONIX IV 40 MG IV (09:55)
[2023-09-30] MEDS: SODIUM BICARBONATE 650 MG PO ×2 (09:55→19:52)
[2023-09-30] MEDS: KCL ELIXIR 20 MEQ PO (09:58)
--- NOTE | 2023-09-30 11:29 | W.PN.HOSP.TC ---
Today's Communication/Plan
-
replete kcl
oob/pt/ot
iv abx
trend cr
Assessment / Plan
Assessment / Plan
Patient is a 78y M with PMH significant for PA-Fib, CKD and obesity who presents to ED complaining of feeling poorly for about one week.
Perforated Appendicitis
-Underwent laparoscopic partial cecectomy and drainage of intra-abdominal abscess on 09/27
-Abdominal ARELY drain output 60 mL of sanguinous fluid. Plan to keep ARELY drink for approx 7d post op
-WBC has been normalized. remains afebrile in night.
-No intraoperative culture collected.
-Currently on empiric Zosyn, discussed with general surgery and plan to manage. 10-14d post op
-Advanced to fulls
-Discussed with general surgery and patient will need to be restarted back on Xarelto home dose after 72 hours.
Dyspnea
-Patient feeling minimal dyspnea.
-Minute basilar crackles possible atelectasis versus congestion
-DC IVF
-IS ordered
-Check orthostatics
-CXR if symptoms progress or hypoxia develops
MATT on CKD V
Non-Functioning Right Kidney
Mild Hypokalemia
Non-Gapped Metabolic Acidosis
-SCr = 6.1 with recent baseline of 5.1 (July) and fairly rapid progression over the past 6 months (previously 2.1).
-Nephrology following and help appreciated.
-Indwelling Lemus catheter to remain until nephrology clearance.
-Starting oral bicarb.
Paroxysmal Atrial Fibrillation
h/o PPM
-Patient on no meds for chronic rate / rhythm control.
-Xarelto can be resumed 72 hours post surgery
Anxiety / Insomnia
- Stable. Continue nightly alprazolam PRN at lower dose.
- Patient notes that he has been taking 2mg of alprazolam nightly for the past 8 years.
-explained to patient the risk of delirium, confusion, tolerance leading to higher dose in future and fall risk-explained in front to daughter. Both verbalized understanding.
Obesity due to excess calories
- s/p prior gastric bypass. More recent weight gain (during COVID).
- Affects all aspects of care.
- Encourage healthy diet / increased activity with goal of weight loss.
DVT Prophylaxis: Subcu Heparin
Code Status: Full
Anticipated Discharge: > 48 hours
Subjective/Interval History
-
Date of Service: September 30, 2023
mild lightheaded earlier today
Objective Data
-
Labs:
Laboratory Results
09/30/23
04:52
WBC 9.7
Hgb 9.7 L
Hct 27.3 L
Plt Count 168
Sodium 134 L
Potassium 3.4 L
Chloride 106
Carbon Dioxide 19 L
BUN 40 H
Creatinine 4.1 H*
Glucose 94
Calcium 7.8 L
Vital Signs:
Vital Signs
Temp Pulse Resp BP Pulse Ox
98.0 F 61 17 125/70 96
09/30/23 07:35 09/30/23 07:35 09/30/23 07:35 09/30/23 07:35 09/30/23 07:35
I&O
09/29/23 09/30/23 10/01/23
06:59 06:59 06:59
Intake Total 1400 / 1400 50 / 50
Output Total 1133 / 1133 1735 / 1735
Balance 267 / 267 -1685 / -1685
Physical Exam
-
General: No Apparent Distress and Comfortable
HEENT: Negative Oxygen
Respiratory: Clear to Auscultation
Cardiac: Regular Rhythm and S1/S2; Negative Murmur or Rub
GI: Soft, Tender (RLQ) and Other (ARELY drain in place)
Genito-urinary: Lemus (Clear urine)
Musculoskeletal: No Edema
Neuro: Awake, Alert, Oriented, No Motor Deficits and Nonfocal/Grossly Intact
Psych: Calm
Data Reviewed
-
Total Time Spent with Patient (in minutes): 55
--- NOTE | 2023-09-30 12:02 | W.PN.NEPH.PH ---
Today's Communication / Plan
-
observe labs with dempsey
possible VT in am
Assessment/Plan
-
Assessment:
MATT on CKD IV
solitary functioning kidney
perforated appendicitis now s/p laproscopic appendectomy
pAfib
anxiety/insomnia
obesity
Plan:
- s/p appendectomy and partick cecetomy with drainage of intrabd abscess
- Cr peak at 6.1, now down to 4.1
- MATT likely in the setting of pre-renal disease/ATN
- imaging without s/s of calculus in functional L kidney
- UA notable for some blood but no protein
- Dempsey in place, would continue at this time to accurately measure I/Os
if cr cont to improve likely attempt VT in am
met acidosis stable cont po bicarb
replace k
labs in am
The plan will be for supportive management at this point. Patient is not a good candidate for biopsy and does not want dialysis as per discussion with Dr Tate on 09/28
-
-
Date of Service: September 30, 2023
CC / HPI / ROS
-
Chief Complaint:
MATT on CKD
History of Present Illness:
Cr up to 6.1, down to 4.1
good UOP-non oliguric with dempsey
s/p appendectomy
Review of Systems:
no cp or sob
feels well
no n/v, constipation +
Labs
-
Labs:
WBC 9.7 10^3/uL (4.8-10.8) 09/30/23 04:52
RBC 2.90 10^6/uL (4.70-6.10) L 09/30/23 04:52
Hgb 9.7 g/dL (13.0-18.0) L 09/30/23 04:52
Hct 27.3 % (39.0-52.0) L 09/30/23 04:52
Plt Count 168 10^3/uL (130-400) 09/30/23 04:52
Sodium 134 mmol/L (135-145) L 09/30/23 04:52
Potassium 3.4 mmol/L (3.5-5.1) L 09/30/23 04:52
Chloride 106 mmol/L (98-107) 09/30/23 04:52
Carbon Dioxide 19 mmol/L (22-30) L 09/30/23 04:52
BUN 40 mg/dl (9-20) H 09/30/23 04:52
Creatinine 4.1 mg/dL (0.7-1.3) H* 09/30/23 04:52
eGFR 14.35 09/30/23 04:52
Glucose 94 mg/dl (70-99) 09/30/23 04:52
Calcium 7.8 mg/dl (8.4-10.2) L 09/30/23 04:52
Phosphorus 4.8 mg/dl (2.5-4.5) H 09/28/23 04:27
Jla-N-Pawpbixkjox Pept 3980 pg/ml 09/27/23 23:04
Albumin 2.6 g/dl (3.5-5.0) L 09/28/23 04:27
Physical Exam
-
Vital Signs:
Vital Signs
Temp Pulse Resp BP Pulse Ox
98.0 F 61 17 125/70 96
09/30/23 07:35 09/30/23 07:35 09/30/23 07:35 09/30/23 07:35 09/30/23 07:35
Cardiovascular:: Regular rate and rhythm
Respiratory:: Bilateral: CTA
Lung Excursion:: Normal
Abdomen:: Nontender and Soft
Extremity Edema:: None: Bilateral:
Dempsey Catheter: Yes
[2023-09-30] MEDS: ROXICODONE 5 MG PO ×2 (12:04→22:00)
--- NOTE | 2023-09-30 14:50 | CM ---
CM met with pt and his daughter/Anjana
Pt and spouse reside in [place] but spend their summer months at their home in [place], [place]
Dtr/Anjana resides in [place]
Pt notes independence with his ADLs without any ADs
He has a WW but his is using it at home due to knee surgery two weeks prior
Pt has his cpap at home
His [facility] house is multi story with 0STE and elevator in home
Dtr's home is 3STE and capability for 1st floor setup, powder room on 1st floor
Pt's PCP is in [place] but he is under care of multi specialists
Pt is POD#2 lap appy with plan for darrick drain 7 days post-op
PT/OT evals placed and pending
Pt is unsure if he will dc to [facility]'s home or [place] home on dc
Dependent on dc needs
Spouse is currently at [facility] with [facility]ngela
Ángela or [facility] would be homecare choice if required on dc
Assisted living list along with SNF PAC provided per their request
They migth be interested in an assisted living respite stay on dc
Discharge Disposition- home with likely VN vs SNF vs assisted living respite
if home, may need WW to be issued
[2023-09-30 15:30] VITALS: BP 108/68
[2023-09-30 15:47] VITALS: BP 102/61; PULSE 61
[2023-09-30] MEDS: PRAVACHOL 10 MG PO (21:59)
[2023-09-30] MEDS: XANAX 1 MG PO (22:01)
[2023-09-30 23:00] VITALS: BP 114/69
[2023-10-01] MEDS: ZOSYN 50 IV ×3 (01:03→16:34)
[2023-10-01] MEDS: HEPARIN 5000 UNITS SC (05:32)
[2023-10-01 05:48] VITALS: BMI 37.2
[2023-10-01 06:36] LABS: Hematocrit 27.9 % (39.0-52.0); Hemoglobin 9.6 g/dL (13.0-18.0); Mean Corp Hgb Conc. 34.4 g/dL (33.0-37.0); Mean Corpuscular Hgb 32.9 pg (27.0-31.0); Mean Corpuscular Volume 95.5 fL (80.0-94.0); Mean Platelet Volume 10.6 fL (7.4-10.4); Platelet Count 193 10^3/uL (130-400); Red Blood Cell Count 2.92 10^6/uL (4.70-6.10)
[2023-10-01 06:58] LABS: Blood Urea Nitrogen 35 mg/dl (9-20); Calcium 7.8 mg/dl (8.4-10.2); Carbon Dioxide 21 mmol/L (22-30); Chloride 108 mmol/L (98-107); Estimated Creatinine Clearance 22 ml/min; Glucose 81 mg/dl (70-99); Potassium 3.3 mmol/L (3.5-5.1); Sodium 137 mmol/L (135-145); eGFR 15.23
[2023-10-01 07:05] VITALS: BP 106/58
--- NOTE | 2023-10-01 08:22 | W.PN.GS2 ---
Today's Communication / Plan
-
-- Regular
-- DVT: SQH, OK for therapeutic anticoagulation
-- Maintain ARELY for 7 days post-op (plan for DC in place)
-- Abx: Zosyn, will need 10 days post op (Augmentin on DC)
Assessment / Plan
-
Patient is a 78 yo M POD#3 s/p laparoscopic appendectomy and partial cecectomy with drainage of intra-abdominal abscess for perforated appendicitis
Recovering well. No major postoperative concerns.
-- Regular
-- Pain control: Tylenol, Oxycodone, IV Dilaudid PRN
-- DVT: SQH, OK for therapeutic anticoagulation
-- Maintain ARELY for 7 days post-op (plan for DC in place)
-- Abx: Zosyn, will need 10 days post op
-- OOB/ambulate
Subjective Data
-
Date of Service: October 01, 2023
Much complaints. Denies worsening pain. No nausea or vomiting. Passing flatus and stool. Afebrile.
Objective Data
-
Intake and Output
09/30/23 10/01/23 10/02/23
06:59 06:59 06:59
Intake Total 50 / 50 560 / 560
Output Total 1735 / 1735 1585 / 1585
Balance -1685 / -1685 -1025 / -1025
Intake:
Oral fluids 480 / 480
IV fluids (Total) 25 / 25
IV piggybacks 50 / 50 50 / 50
Amount instilled into Drain (
Total)
Left Abdomen Moi-Rodriguez
Output:
Drain Output (Total) 60 / 60 85 / 85
Left Abdomen Moi-Rodriguez 60 / 60 85 / 85
Urine, Lemus 1675 / 1675 1500 / 1500
Vital Signs
Temp Pulse Resp BP Pulse Ox
97.9 F 63 17 106/58 95
10/01/23 07:05 10/01/23 07:05 10/01/23 07:05 10/01/23 07:05 10/01/23 07:05
Lab Results
10/01/23 05:54
10/01/23 05:54
Calcium 7.8 mg/dl (8.4-10.2) L 10/01/23 05:54
Phosphorus 4.8 mg/dl (2.5-4.5) H 09/28/23 04:27
Magnesium 1.9 mg/dl (1.6-2.3) 09/28/23 04:27
Total Bilirubin 1.6 mg/dl (0.2-1.3) H 09/28/23 04:27
Direct Bilirubin 0.6 mg/dl (0.0-0.4) H 09/28/23 04:27
AST 20 U/L (17-59) 09/28/23 04:27
ALT 13 U/L (0-50) 09/28/23 04:27
Alkaline Phosphatase 89 U/L (38-126) 09/28/23 04:27
Total Protein 5.2 g/dl (6.3-8.2) L 09/28/23 04:27
Albumin 2.6 g/dl (3.5-5.0) L 09/28/23 04:27
Physical Exam
-
Gen: NAD
Abd: soft, NT/ND, incisions c/d/i - no erythema, ecchymosis or drainage, ARELY serosang, mild fibrinous debris
[2023-10-01] MEDS: KCL ELIXIR 40 MEQ PO (08:25)
[2023-10-01] MEDS: PROTONIX IV 40 MG IV (08:26)
[2023-10-01] MEDS: SODIUM BICARBONATE 650 MG PO ×2 (08:26→21:39)
[2023-10-01] MEDS: TYLENOL 1000 MG PO (09:19)
--- NOTE | 2023-10-01 10:37 | W.PN.HOSP.TC ---
Today's Communication/Plan
-
Monitor diet tolerance
IV abx for now
replete kcl
Nephro recs
Lemus per nephro
Assessment / Plan
Assessment / Plan
Patient is a 78y M with PMH significant for PA-Fib, CKD and obesity who presents to ED complaining of feeling poorly for about one week.
Perforated Appendicitis
-Underwent laparoscopic partial cecectomy and drainage of intra-abdominal abscess on 09/27
-Abdominal ARELY drain output 60 mL of sanguinous fluid. Plan to keep ARELY drink for approx 7d post op-will go home with awa
-WBC has been normalized. remains afebrile in night.
-No intraoperative culture collected.
-Currently on empiric Zosyn, discussed with general surgery and plan to manage. 10-14d post op. Switch to augmentin on dc
-Advanced to regular. Monitor for diet tolerance.
-GS recs
Dyspnea resolving
-Minute basilar crackles possible atelectasis versus congestion
-DC IVF
-IS ordered
-Check orthostatics
-CXR if symptoms progress or hypoxia develops
MATT on CKD V
Non-Functioning Right Kidney
Mild Hypokalemia
Non-Gapped Metabolic Acidosis
-SCr = 6.1 with recent baseline of 5.1 (July) and fairly rapid progression over the past 6 months (previously 2.1).
-Nephrology following and help appreciated.
-Indwelling Lemus catheter to remain until nephrology clearance. Can probably do TOV
-Starting oral bicarb.
-Cr improving to 3.9 now
Paroxysmal Atrial Fibrillation
h/o PPM
-Patient on no meds for chronic rate / rhythm control.
-Xarelto can be restarted per surgery
Anxiety / Insomnia
- Stable. Continue nightly alprazolam PRN at lower dose.
- Patient notes that he has been taking 2mg of alprazolam nightly for the past 8 years.
-explained to patient the risk of delirium, confusion, tolerance leading to higher dose in future and fall risk-explained in front to daughter. Both verbalized understanding.
Obesity due to excess calories
- s/p prior gastric bypass. More recent weight gain (during COVID).
- Affects all aspects of care.
- Encourage healthy diet / increased activity with goal of weight loss.
Hypokalemia
-replete/monitor
DVT Prophylaxis: xarelto
Code Status: Full
PT recs Home VN on dc.
d/w wtih daughter at bedside in details
Anticipated Discharge: 24 - 48 hours
Subjective/Interval History
-
Date of Service: October 01, 2023
Tolerating liquids
mild abd discomfort
Objective Data
-
Labs:
Laboratory Results
10/01/23
05:54
WBC 7.0
Hgb 9.6 L
Hct 27.9 L
Plt Count 193
Sodium 137
Potassium 3.3 L
Chloride 108 H
Carbon Dioxide 21 L
BUN 35 H
Creatinine 3.9 H
Glucose 81
Calcium 7.8 L
Vital Signs:
Vital Signs
Temp Pulse Resp BP Pulse Ox
97.9 F 63 17 106/58 95
10/01/23 07:05 10/01/23 07:05 10/01/23 07:05 10/01/23 07:05 10/01/23 08:00
I&O
09/30/23 10/01/23 10/02/23
06:59 06:59 06:59
Intake Total 50 / 50 560 / 560
Output Total 1735 / 1735 1585 / 1585
Balance -1685 / -1685 -1025 / -1025
Physical Exam
-
General: No Apparent Distress and Comfortable
HEENT: Negative Oxygen
Respiratory: Clear to Auscultation
Cardiac: Regular Rhythm and S1/S2; Negative Murmur or Rub
GI: Soft, Tender (RLQ) and Other (ARELY drain in place)
Genito-urinary: Lemus (Clear urine)
Musculoskeletal: No Edema
Neuro: Awake, Alert, Oriented, No Motor Deficits and Nonfocal/Grossly Intact
Psych: Calm
Data Reviewed
-
Total Time Spent with Patient (in minutes): 55
--- NOTE | 2023-10-01 10:54 | PN.CDI ---
CDI
- -
CDI:
Physician Documentation Request
Admit Date: 09/28/23 02:40
Dear Doctor Curt,
Patient admitted with perforated appendicitis.
09/29 Nephrology PN: 'MATT on CKD IV'
09/30 Hospitalist PN: 'MATT on CKD V, Non-Functioning Right Kidney...-Cr improving to 3.9 now'
Laboratory Tests
09/30/23 10/01/23
04:52 05:54
Creatinine 4.1 H* 3.9 H
eGFR 14.35 15.23
Clarify which of the following accurately represents the patient's renal status:
MATT on CKD 4
MATT on CKD 5
Other
Stages of Chronic Kidney Disease*
Level Description GFR
G1 Normal or High >90
G2 Mildly decreased 60-89
G3a Mildly to moderately decreased 45-59
G3b Moderately to severely decreased 30-44
G4 Severely decreased 15-29
G5 Kidney failure <15
Use of terms such as suspected, likely, concern for, or probable (associated with a specific diagnosis that is being evaluated, monitored, or treated as if it exists) are acceptable and can be coded in the inpatient setting, when documented at the
time of discharge.
Thank you,
Dee Yu RN, BSN
CDI Specialist
Available via [employer] text
Please use your independent medical judgment in providing your response.
*Source: Kidney Disease: Improving Global Outcomes (KDIGO) 2012
[2023-10-01 13:26] VITALS: BP 109/70; BP 130/81; PULSE 60; O2SAT 97
--- NOTE | 2023-10-01 14:22 | W.PN.NEPH.PH ---
Today's Communication / Plan
-
d/c dempsey
Assessment/Plan
-
Assessment:
MATT on CKD IV
solitary functioning kidney
perforated appendicitis now s/p laproscopic appendectomy
pAfib
anxiety/insomnia
obesity
Plan:
- s/p appendectomy and partick cecetomy with drainage of intrabd abscess
- Cr peak at 6.1, now down to 3.9
- MATT likely in the setting of pre-renal disease/ATN
- imaging without s/s of calculus in functional L kidney
- UA notable for some blood but no protein
- Dempsey in place, would continue at this time to accurately measure I/Os
ok to d/c dempsey today and monitor bladder scan
met acidosis stable cont po bicarb
replace k , back on kcitrate
If cr cont to improve tomorrow no objection to d/c
d/w pt and daughter at bedside, d/w nursing
The plan will be for supportive management at this point. Patient is not a good candidate for biopsy and does not want dialysis as per discussion with Dr Tate on 09/28
-
-
Date of Service: October 01, 2023
CC / HPI / ROS
-
Chief Complaint:
MATT on CKD
History of Present Illness:
Cr up to 6.1, down to 3.9
good UOP-non oliguric with dempsey
s/p appendectomy
BP stbale
Review of Systems:
no cp or sob
feels well
no n/v, discomfort with dempsey
Labs
-
Labs:
WBC 7.0 10^3/uL (4.8-10.8) 10/01/23 05:54
RBC 2.92 10^6/uL (4.70-6.10) L 10/01/23 05:54
Hgb 9.6 g/dL (13.0-18.0) L 10/01/23 05:54
Hct 27.9 % (39.0-52.0) L 10/01/23 05:54
Plt Count 193 10^3/uL (130-400) 10/01/23 05:54
Sodium 137 mmol/L (135-145) 10/01/23 05:54
Potassium 3.3 mmol/L (3.5-5.1) L 10/01/23 05:54
Chloride 108 mmol/L (98-107) H 10/01/23 05:54
Carbon Dioxide 21 mmol/L (22-30) L 10/01/23 05:54
BUN 35 mg/dl (9-20) H 10/01/23 05:54
Creatinine 3.9 mg/dL (0.7-1.3) H 10/01/23 05:54
eGFR 15.23 10/01/23 05:54
Glucose 81 mg/dl (70-99) 10/01/23 05:54
Calcium 7.8 mg/dl (8.4-10.2) L 10/01/23 05:54
Phosphorus 4.8 mg/dl (2.5-4.5) H 09/28/23 04:27
Gmp-I-Gfsoxcqdoxy Pept 3980 pg/ml 09/27/23 23:04
Albumin 2.6 g/dl (3.5-5.0) L 09/28/23 04:27
Physical Exam
-
Vital Signs:
Vital Signs
Temp Pulse Resp BP Pulse Ox
97.9 F 63 17 106/58 95
10/01/23 07:05 10/01/23 07:05 10/01/23 07:05 10/01/23 07:05 10/01/23 08:00
Cardiovascular:: Regular rate and rhythm
Respiratory:: Bilateral: CTA
Lung Excursion:: Normal
Abdomen:: Nontender and Soft
Extremity Edema:: None: Bilateral:
Dempsey Catheter: Yes
[2023-10-01 15:38] VITALS: BP 103/65; BP 106/66; BP 108/68; PULSE 61; PULSE 67
--- NOTE | 2023-10-01 16:08 | CM ---
CM reviewed pt with Dr Elias, ADC tomorrow
Bedside meeting with pt and son to determine plans
Plan for family meeting tonight to determine dc dispo
PT recommends VN and OT SNF
Pt declined SNF
He will be discharging to one of his children's homes ([place], [place],or [place])
Plan to follow up tomorrow to determine dc location and then send appropriate VN referral
Discharge Disposition- children's home with VN
[2023-10-01] MEDS: XARELTO 15 MG PO (17:07)
[2023-10-01] MEDS: ROXICODONE 5 MG PO (21:38)
[2023-10-01] MEDS: UROCIT-K 10 MEQ PO (21:39)
[2023-10-01] MEDS: PRAVACHOL 10 MG PO (21:39)
[2023-10-01] MEDS: CARDURA 4 MG PO (21:41)
[2023-10-01] MEDS: XANAX 1 MG PO (22:01)
[2023-10-01 23:39] VITALS: BP 130/73
[2023-10-02] MEDS: ZOSYN 50 IV ×3 (00:17→12:04)
[2023-10-02 05:38] VITALS: BMI 37.3
[2023-10-02 06:40] LABS: % Basophils 0.3 % (0-2); % Eosinophils 2.5 % (0-6); % Immature Granulocytes 0.6 % (0-0.5); % Lymphocytes 16.6 % (20.5-51.1); % Monocytes 4.2 % (1.7-9.3); % Neutrophils 75.8 % (42.2-75.2); Absolute Eosinophils 0.2 10^3/uL (0-0.7); Absolute Lymphocytes 1.2 10^3/uL (1.2-3.4); Absolute Monocytes 0.3 10^3/uL (0.1-0.6); Absolute Neutrophils 5.2 10^3/uL (1.4-6.5); Hematocrit 29.3 % (39.0-52.0); Hemoglobin 9.7 g/dL (13.0-18.0); Mean Corp Hgb Conc. 33.1 g/dL (33.0-37.0); Mean Corpuscular Volume 96.7 fL (80.0-94.0); Mean Platelet Volume 10.3 fL (7.4-10.4); Nucleated Red Blood Cells % 0 % (-); Platelet Count 217 10^3/uL (130-400); Red Blood Cell Count 3.03 10^6/uL (4.70-6.10); Red Cell Dist. Width 13.2 % (11.5-14.5); White Blood Cell Count 6.9 10^3/uL (4.8-10.8)
[2023-10-02 07:01] LABS: Blood Urea Nitrogen 30 mg/dl (9-20); Carbon Dioxide 19 mmol/L (22-30); Chloride 110 mmol/L (98-107); Estimated Creatinine Clearance 23 ml/min; Glucose 82 mg/dl (70-99); Potassium 3.5 mmol/L (3.5-5.1); Sodium 137 mmol/L (135-145); eGFR 15.72
[2023-10-02 07:30] VITALS: BP 126/62
--- NOTE | 2023-10-02 07:36 | W.PN.GS2 ---
Today's Communication / Plan
-
-- Miralax
-- Maintain ARELY for 7 days post-op (plan for DC in place)
-- Abx: Zosyn, will need 10 days post op abx
Assessment / Plan
-
Patient is a 78 yo M POD#4 s/p laparoscopic appendectomy and partial cecectomy with drainage of intra-abdominal abscess for perforated appendicitis
Recovering well. No major postoperative concerns.
-- Regular
-- Miralax
-- Pain control: Tylenol, Oxycodone, IV Dilaudid PRN
-- DVT: SQH, OK for therapeutic anticoagulation
-- Maintain ARELY for 7 days post-op (plan for DC in place)
-- Abx: Zosyn, will need 10 days post op abx
-- OOB/ambulate
Subjective Data
-
Date of Service: October 02, 2023
No major complaints. Denies worsening abdominal pain. No nausea or vomiting. Passing flatus, no BM. Afebrile.
Objective Data
-
Intake and Output
10/01/23 10/02/23 10/03/23
06:59 06:59 06:59
Intake Total 560 / 560 2019
Output Total 1585 / 1585 1130 / 1130
Balance -1025 / -1025 890 / 890
Intake:
Oral fluids 480 / 480 1920 / 1920
IV fluids (Total) 25 / 25
IV piggybacks 50 / 50 100 / 100
Amount instilled into Drain (
Total)
Left Abdomen Moi-Rodriguez
Output:
Drain Output (Total) 85 / 85 30 / 30
Left Abdomen Moi-Rodriguez 85 / 85 30 / 30
Urine, Lemus 1500 / 1500 400 / 400
Urine, Voided 700 / 700
Vital Signs
Temp Pulse Resp BP Pulse Ox
97.7 F 62 18 130/73 93
10/01/23 23:39 10/01/23 23:39 10/01/23 23:39 10/01/23 23:39 10/02/23 00:45
Lab Results
10/02/23 06:06
10/02/23 06:06
Calcium 8.0 mg/dl (8.4-10.2) L 10/02/23 06:06
Phosphorus 4.8 mg/dl (2.5-4.5) H 09/28/23 04:27
Magnesium 1.9 mg/dl (1.6-2.3) 09/28/23 04:27
Total Bilirubin 1.6 mg/dl (0.2-1.3) H 09/28/23 04:27
Direct Bilirubin 0.6 mg/dl (0.0-0.4) H 09/28/23 04:27
AST 20 U/L (17-59) 09/28/23 04:27
ALT 13 U/L (0-50) 09/28/23 04:27
Alkaline Phosphatase 89 U/L (38-126) 09/28/23 04:27
Total Protein 5.2 g/dl (6.3-8.2) L 09/28/23 04:27
Albumin 2.6 g/dl (3.5-5.0) L 09/28/23 04:27
Physical Exam
-
Gen: NAD
Abd: soft, obese, minimal tenderness, ND, non-peritoneal, incisions c/d/i - no erythema, ecchymosis or drainage, ARELY friboserous
[2023-10-02] MEDS: PROTONIX IV 40 MG IV (08:22)
[2023-10-02] MEDS: VITAMIN D3 (cholecalciferol) 50 MCG PO (08:24)
[2023-10-02] MEDS: MIRALAX 17 GRAMS PO (08:24)
[2023-10-02] MEDS: SODIUM BICARBONATE 650 MG PO (08:24)
[2023-10-02] MEDS: UROCIT-K 10 MEQ PO (08:24)
[2023-10-02] MEDS: ROXICODONE 5 MG PO (11:32)
--- NOTE | 2023-10-02 11:54 | W.PN.HOSP.TC ---
Today's Communication/Plan
-
Dispo-nephro recs. If tolerates diet dc home later today.
Assessment / Plan
Assessment / Plan
Patient is a 78y M with PMH significant for PA-Fib, CKD and obesity who presents to ED complaining of feeling poorly for about one week.
Perforated Appendicitis
-Underwent laparoscopic partial cecectomy and drainage of intra-abdominal abscess on 09/27
-Abdominal ARELY drain. Plan to keep ARELY drink for approx 7d post op-will go home with drain
-WBC has been normalized. remains afebrile in night.
-No intraoperative culture collected.
-Currently on empiric Zosyn, discussed with general surgery and plan to manage. 10-14d post op. Switch to augmentin on dc
-Advanced to regular. Monitor for diet tolerance.
-Miralax started per surgery
-GS recs
MATT on CKD IV
Non-Functioning Right Kidney
Mild Hypokalemia
Non-Gapped Metabolic Acidosis
-SCr = 6.1 with recent baseline of 5.1 (July) and fairly rapid progression over the past 6 months (previously 2.1).
-Nephrology following and help appreciated.
-Dempsey DCed and voiding.
-Starting oral bicarb.
-Cr improving to 3.8 now
Paroxysmal Atrial Fibrillation
h/o PPM
-Patient on no meds for chronic rate / rhythm control.
-Xarelto can be restarted per surgery
Anxiety / Insomnia
- Stable. Continue nightly alprazolam PRN at lower dose.
- Patient notes that he has been taking 2mg of alprazolam nightly for the past 8 years.
-explained to patient the risk of delirium, confusion, tolerance leading to higher dose in future and fall risk-explained in front to daughter. Both verbalized understanding.
Obesity due to excess calories
- s/p prior gastric bypass. More recent weight gain (during COVID).
- Affects all aspects of care.
- Encourage healthy diet / increased activity with goal of weight loss.
Hypokalemia
-replete/monitor
Dyspnea resolved.
-Minute basilar crackles possible atelectasis versus congestion
-DC IVF
-IS ordered
-Check orthostatics
-CXR if symptoms progress or hypoxia develops
DVT Prophylaxis: xarelto
Code Status: Full
PT recs Home VN on dc. Refused SNF.
d/w wtih daughter and spouse at bedside in details
Dispo-nephro recs. If tolerates diet dc home later today.
Anticipated Discharge: Within 24 hours
Subjective/Interval History
-
Date of Service: October 02, 2023
no abd pain
passing flatulence
voiding
dempsey removed
Objective Data
-
Labs:
Laboratory Results
10/02/23
06:06
WBC 6.9
Hgb 9.7 L
Hct 29.3 L
Plt Count 217
Sodium 137
Potassium 3.5
Chloride 110 H
Carbon Dioxide 19 L
BUN 30 H
Creatinine 3.8 H
Glucose 82
Calcium 8.0 L
Vital Signs:
Vital Signs
Temp Pulse Resp BP Pulse Ox
97.8 F 61 18 126/62 96
10/02/23 07:30 10/02/23 07:30 10/02/23 07:30 10/02/23 07:30 10/02/23 08:00
I&O
10/01/23 10/02/23 10/03/23
06:59 06:59 06:59
Intake Total 560 / 560 2019
Output Total 1585 / 1585 1130 / 1130
Balance -1025 / -1025 890 / 890
Physical Exam
-
General: No Apparent Distress and Comfortable
HEENT: Negative Oxygen
Respiratory: Clear to Auscultation
Cardiac: Regular Rhythm and S1/S2; Negative Murmur or Rub
GI: Soft, Nondistended and Other (ARELY drain in place)
Genito-urinary: Negative Dempsey
Musculoskeletal: No Edema
Neuro: Awake, Alert, Oriented, No Motor Deficits and Nonfocal/Grossly Intact
Psych: Calm
Data Reviewed
-
Total Time Spent with Patient (in minutes): 55
--- NOTE | 2023-10-02 13:17 | W.PN.NEPH.PH ---
Today's Communication / Plan
-
dc
Assessment/Plan
-
Assessment:
MATT on CKD IV
solitary functioning kidney
perforated appendicitis now s/p laproscopic appendectomy
pAfib
anxiety/insomnia
obesity
Plan:
for dc
BMP early next week
has OV next week
no neutraphos for now
he wants to hold on flomax for now, still on cardura
continue bicarb and urocit
he will schedule modality training before finalizing decision not to accept diaylsis
-
-
Date of Service: October 02, 2023
CC / HPI / ROS
-
Chief Complaint:
MATT on CKD
History of Present Illness:
Cr up to 6.1, down to 3.8
good UOP-non oliguric without dempsey
s/p appendectomy
BP stable
hgb 9.7 stable
Review of Systems:
no cp or sob
Labs
-
Labs:
WBC 6.9 10^3/uL (4.8-10.8) 10/02/23 06:06
RBC 3.03 10^6/uL (4.70-6.10) L 10/02/23 06:06
Hgb 9.7 g/dL (13.0-18.0) L 10/02/23 06:06
Hct 29.3 % (39.0-52.0) L 10/02/23 06:06
Plt Count 217 10^3/uL (130-400) 10/02/23 06:06
Sodium 137 mmol/L (135-145) 10/02/23 06:06
Potassium 3.5 mmol/L (3.5-5.1) 10/02/23 06:06
Chloride 110 mmol/L (98-107) H 10/02/23 06:06
Carbon Dioxide 19 mmol/L (22-30) L 10/02/23 06:06
BUN 30 mg/dl (9-20) H 10/02/23 06:06
Creatinine 3.8 mg/dL (0.7-1.3) H 10/02/23 06:06
eGFR 15.72 10/02/23 06:06
Glucose 82 mg/dl (70-99) 10/02/23 06:06
Calcium 8.0 mg/dl (8.4-10.2) L 10/02/23 06:06
Phosphorus 4.8 mg/dl (2.5-4.5) H 09/28/23 04:27
Qiv-Q-Olpjcjxgboz Pept 3980 pg/ml 09/27/23 23:04
Albumin 2.6 g/dl (3.5-5.0) L 09/28/23 04:27
Physical Exam
-
Vital Signs:
Vital Signs
Temp Pulse Resp BP Pulse Ox
97.8 F 61 18 126/62 96
10/02/23 07:30 10/02/23 07:30 10/02/23 07:30 10/02/23 07:30 10/02/23 08:00
Cardiovascular:: Regular rate and rhythm
Respiratory:: Bilateral: Coarse
Lung Excursion:: Normal
Abdomen:: Nontender and Soft
Bowel Sounds:: Normal
Extremity Edema:: None: Bilateral:
--- NOTE | 2023-10-02 13:36 | W.DCSUMMARY ---
Discharge Summary
Discharge Data
Date of Admission: 09/28/23
Date of Discharge: 10/02/23
-
Pending Results: No
Hospital Course
Patient is a 78y M with PMH significant for PA-Fib, CKD and obesity who presents to ED complaining of feeling poorly for about one week. Found to have Perforated Appendicitis Underwent laparoscopic partial cecectomy and drainage of
intra-abdominal abscess on 09/28/23. ARELY drain was placed in OR. Patient WBC normalized. Patient was started on IV Zosyn. Patient diet was slowly advanced from liquid to regular diet. Patient was tolerating diet. Per RN patient did have bowel
movement. Patient IV antibiotic will be transition to p.o. antibiotics. Patient with given prescription for Augmentin for 10 days. Patient was also found to MATT on CKD stage IV which seems secondary to prerenal. Patient creatinine slowly down
trended. Lemus was DC'd and patient was voiding. P.o. bicarbonate was continued. Recommended outpatient BMP. Patient be discharged home as he was refusing SNF with outpatient PT OT ilan. . Daughter will be assisting patient in home care.
Patient was seen by general surgery and nephrology.
Discharge Plan
-
Patient Disposition: Home with Home Care
Discharge Diagnosis/Procedures: Perforated appendicitis status post laparoscopic partial cecectomy and drainage of intra-abdominal abscess on 09/27
Acute kidney injury on chronic kidney disease
Nongap metabolic acidosis
Mild hypokalemia
Condition: Fair
Diet: Regular
Activity: No strenuous activity
Additional Activity: Do not lift over 15 pounds for the next 3 weeks
Bathing Restrictions: OK to Shower
Blood Work: Repeat BMP in 1 week with primary doctor or nephrology
Activity Restrictions/Additional Instructions:
Call your surgeon if you have worsening pain, nausea or vomiting or a fever >100.5
Instructions: How to Keep Track of Your Drainage
Referrals:
Deng Saucedo MD [Active] - in one week
Terrance Handley MD [Active] - None
UNKNOWN - PT DOES,NOT KNOW [Family Provider] - in less than 1 week
Prescriptions:
New
sodium bicarbonate 650 mg Tablet
650 mg PO BID 10 Days Qty: 20 0RF
acetaminophen [Tylenol] 325 mg tablet
650 mg PO Q6H PRN (Reason: fever or pain) Qty: 30 0RF
oxycodone 5 mg tablet
5 mg PO BID PRN (Reason: severe pain) Qty: 7 0RF
amoxicillin-pot clavulanate 875-125 mg tablet
1 tab PO BID Qty: 20 0RF
Continued
potassium citrate 10 MEQ tablet extended release
10 meq PO BID
doxazosin 2 MG tablet
4 mg PO HS
cetirizine 10 MG tablet
20 mg PO DAILY
omeprazole 40 MG capsule,delayed release(DR/EC)
40 mg PO DAILY
cholecalciferol (vitamin D3) [Vitamin D3] 1,000 UNIT capsule
2,000 unit PO DAILY
pravastatin 10 MG tablet
10 mg PO HS
Xarelto 15 MG tablet
15 mg PO QPM
Changed
alprazolam 1 MG tablet
2 mg PO HS PRN (Reason: Mental Health/Anxiety) Qty: 0 0RF
Discontinued
Phospha 250 Neutral
1 tab PO DAILY
Discharge Orders:
Discharge Patient (As Directed); Ordered 10/02/23
Ordered By: Tobias Elias
Discharge Date and Time
Print Language: SAMI
[2023-10-02 15:15] VITALS: BP 108/65
--- NOTE | 2023-10-02 15:16 | CM ---
CM reviewed pt with Dr Elias- anticipate dc today pending toleration of diet
Extensive dc planning conversations throughout day with pt, spouse and multiple children
Pt plans to dc to dtr's home in [place]
Extensive homecare agency search completed (10 referrals sent) and no accepting agency
Most don't service zip or have available staffing
SNF referrals sent to [facility] SNFs per pt request
Only accepting SNF is [facility]- pt declined due to semi private room
other family homes in [place] not a dc option
Plan for home with dtr without homecare
Dtr will care for drain and pt in agreement with outpt PT/OT
Walker issued by therapy
Nursing will reinforce drain care and teaching with dtr
Private duty nursing/PT/OT info provided to dtr ([facility])
[facility] info provided for outpt therapy
[facility] info also provided as pt without local PCP (his in [place])
Updates to Dr Elias and Dr Saucedo
Script requested for outpt PT/OT
Discharge Disposition- home with family care and outpatient PT/OT- family transport
== END 2023-10-02 16:28 | disposition home health service (06) | DRG 329 ==
LOC: 2 SOUTH 02:40
PROVIDERS: Hospitalist; ADMITTING PHYSICIAN Hospitalist; ATTENDING PHYSICIAN Hospitalist; CONSULT PHYSICIAN Student in an Organized Health Care Education/Training Program; CONSULT PHYSICIAN Surgery; EMERGENCY PHYSICIAN Emergency Medicine
PROC: 0DTJ4ZZ Resection of Appendix, Percutaneous Endoscopic Approach (ICD-10-PCS; 2023-09-28)
PROC: 0DBH4ZZ Excision of Cecum, Percutaneous Endoscopic Approach (ICD-10-PCS; 2023-09-28)
PROC: 0W9G4ZZ Drainage of Peritoneal Cavity, Percutaneous Endoscopic Approach (ICD-10-PCS; 2023-09-28)
DX: K35.33 Acute appendicitis with perforation, localized peritonitis, and gangrene, with abscess (principal); N17.0 Acute kidney failure with tubular necrosis; I12.0 Hypertensive chronic kidney disease with stage 5 chronic kidney disease or end stage renal disease; E87.20 Acidosis, unspecified; N18.4 Chronic kidney disease, stage 4 (severe); K38.1 Appendicular concretions; I48.0 Paroxysmal atrial fibrillation; E87.6 Hypokalemia; E66.09 Other obesity due to excess calories; Z68.37 Body mass index [BMI] 37.0-37.9, adult; Z79.01 Long term (current) use of anticoagulants
CPT/HCPCS: 88304; 88307; 71045; 74176; 80048; 80053; 80076; 81003; 81015; 82962; 83605; 83735; 83880; 84100; 84443; 84484; 85025; 85027; 85610; 86850; 86900; 86901; 87040; 87045; 87046; 87427; 87502; 87811; 93005; 94760; 96361; 96365; 97162; 97167; 99285

== ENCOUNTER 2023-10-07 14:31 | Emergency (ER) | payer MEDICARE, OTHER, SELFPAY ==
[2023-10-07 14:39] VITALS: BP 136/86
--- NOTE | 2023-10-07 15:39 | ED.GENMED ---
History of Present Illness
General
Chief Complaint: Abdominal Pain
Time Seen by Provider: 10/07/23 15:18
Travel History
Have you had any contact with someone who has COVID-19?: No
Do you have any symptoms of coronavirus? Fever > 100 degrees, chills, cough, shortness of breath, sore throat, loss of taste or smell, muscle aches, or headache?: No
History of Present Illness
History of Present Illness:
78-year-old male presents to the emergency department upon referral from his general surgeon for evaluation of generalized weakness and increased abdominal pain. He is 9 days status post laparoscopic appendectomy and partial cecectomy for
perforated appendicitis. A ARELY drain remains in place at this time. He noted having increased left upper quadrant abdominal pain over the past 48 hours, saw his surgeon today for follow-up and was referred to the emergency department. Patient
reports that he has been having watery as well as normal bowel movements over the past 2 to 3 days. Denies any fevers but does have chills.
Past History
Past History
ED Past Medical History: Arrthythmia, GERD, HTN, Hypercholesterolemia, Other (Chronic kidney disease, Pyelonephritis, Kidney stones, SBO, Right kidney nonfunctioning,) and Other (Gilbert's disease)
ED Past Surgical History: Other (Gastric bypass, cardiac ablation)
Social History
Tobacco: Former smoker
Alcohol: None
Drug: None
Personal:
Living: with family
Family History
Family History: Negative Diabetes, Hypertension or CAD
Review of Systems
Review of Systems
Allergies reviewed?: Yes
All Other Systems: ROS reviewed and negative except as documented in HPI and ROS
Phy Exam
Physical Exam
Physical Exam:
GEN: Well appearing, NAD, WDWN
HEENT: Oral mucosa moist, no scleral icterus
Cardiac: Regular rate
Lung: No respiratory distress, no tachypnea
Abdomen: Well-approximated laparoscopic incisional sites with no dehiscence or discharge. Mild tenderness to the epigastrium and left upper quadrant, no rigidity or peritoneal signs. Left-sided abdominal ARELY drain in place with approximately 20 to
30 cc of blood-tinged drainage
MSK: No gross deformity or injuries
Skin: Good color, no pallor or jaundice, no rashes
Neuro: AO x3, moves all extremities freely
Psych: Calm, cooperative
Course
Orders/Labs/Results
Orders:
Orders
10/07/23 15:36
CT Abd/pel Without Iv Or Oral Urgent
Reason For Exam: LUQ pain, s/p appy/partial cecectomy
10/07/23 15:38
Lactated Ringers [Lr] 1,000 ml IV BOLUS
10/07/23 16:06
Complete Blood Count/With Diff Urgent
Comprehensive Metabolic Panel Urgent
Lactic Acid Q4H
Comment: CANCEL 2nd LACTIC ACID IF 1st LACTIC ACID IS LESS THAN 2
Blood Culture Q30M
SANDRA Source: Blood/Venous
Specimen Description:
Blood Culture Q30M
SANDRA Source: Blood/Venous
Specimen Description:
10/07/23 18:46
Morphine Sulfate 4 mg IV NOW STA
Ondansetron Injectable [Zofran] 4 mg IV NOW STA
Abnormal Lab Results
10/07/23
16:06
RBC 3.31 L 10^6/uL
(4.70-6.10)
Hgb 10.8 L g/dL
(13.0-18.0)
Hct 31.7 L %
(39.0-52.0)
MCV 95.8 H fL
(80.0-94.0)
MCH 32.6 H pg
(27.0-31.0)
Absolute Lymphs (auto) 0.9 L 10^3/uL
(1.2-3.4)
Neutrophils % 78.6 H %
(42.2-75.2)
Lymphocytes % 13.1 L %
(20.5-51.1)
Chloride 112 H mmol/L
(98-107)
Carbon Dioxide 19 L mmol/L
(22-30)
Creatinine 4.0 H mg/dL
(0.7-1.3)
Total Protein 5.6 L g/dl
(6.3-8.2)
Albumin 3.0 L g/dl
(3.5-5.0)
10/07/23 16:06
10/07/23 16:06
Vital Signs
Initial and Last Documented VS:
Initial Vital Signs
Temp Pulse Resp BP Pulse Ox
97.5 F 74 18 136/86 98
10/07/23 14:39 10/07/23 14:39 10/07/23 14:39 10/07/23 14:39 10/07/23 14:39
Last Documented Vital Signs
Temp Pulse Resp BP Pulse Ox
97.5 F 60 11 145/86 93
10/07/23 14:39 10/07/23 19:30 10/07/23 19:30 10/07/23 19:00 10/07/23 19:30
MDM/Problems Addressed
MDM/Problems Addressed:
CT is unremarkable, no abscess or fluid collection identified. The patient's labs are reassuring. He was given 1 L lactated Ringer's for rehydration. I reviewed the pertinent lab findings and images with his general surgeon who feels comfortable
with him being discharged home. He will follow-up in the office later this week for ARELY drain removal
*Critical Care Note
Total Time (30-74mins, 75-104mins- exclusive of procedures): Not Applicable
ED Attending Note
-
Portions of this chart may have been created with voice recognition software.� Occasional wrong word or��sound alike� substitutions may have occurred due to the inherent limitations of voice recognition software.
Discharge Plan
Departure
Patient Disposition: Home (Routine Discharge)
Date of Disposition: 10/07/23
Time of Disposition: 19:15
Patient with high blood pressure during this ER visit?: No
Discharge Problem:
Abdominal pain, Acute dehydration
Instructions: Abdominal Pain
Prescriptions:
No Action
potassium citrate 10 MEQ tablet extended release
10 meq PO BID
doxazosin 2 MG tablet
4 mg PO HS
cetirizine 10 MG tablet
20 mg PO DAILY
omeprazole 40 MG capsule,delayed release(DR/EC)
40 mg PO DAILY
cholecalciferol (vitamin D3) [Vitamin D3] 1,000 UNIT capsule
2,000 unit PO DAILY
pravastatin 10 MG tablet
10 mg PO HS
Xarelto 15 MG tablet
15 mg PO QPM
sodium bicarbonate 650 mg Tablet
650 mg PO BID 10 Days Qty: 20 0RF
alprazolam 1 MG tablet
2 mg PO HS PRN (Reason: Mental Health/Anxiety) Qty: 0 0RF
acetaminophen [Tylenol] 325 mg tablet
650 mg PO Q6H PRN (Reason: fever or pain) Qty: 30 0RF
oxycodone 5 mg tablet
5 mg PO BID PRN (Reason: severe pain) Qty: 7 0RF
amoxicillin-pot clavulanate 875-125 mg tablet
1 tab PO BID Qty: 20 0RF
Referrals:
Deng Saucedo MD [Active] - Call in 1-3 days for appt
UNKNOWN - PT DOES,NOT KNOW [Family Provider] -
Interventions
Interventions:
*Risk Screen - Suicide Last Done: 10/07/23 14:41
*General Assessment Last Done: 10/07/23 14:41
*Neglect/Abuse Screening Last Done: 10/07/23 14:41
ED- Fall Risk Assessment Last Done: 10/07/23 19:43
*ED COVID-19 Vaccine History Last Done: 10/07/23 19:43
*Nursing Disposition Last Done: 10/07/23 19:43
[facility] Assessment Last Done: 10/07/23 16:45
Discharge Date and Time
Discharge Date/Time: 10/07/23 19:44
Print Language: TANZANIAN
[2023-10-07] MEDS: LR 1000 IV (16:07)
[2023-10-07 16:16] VITALS: BP 117/71
[2023-10-07 17:00] VITALS: BP 131/75
[2023-10-07 17:01] LABS: % Basophils 0.4 % (0-2); % Eosinophils 2.2 % (0-6); % Immature Granulocytes 0.3 % (0-0.5); % Lymphocytes 13.1 % (20.5-51.1); % Monocytes 5.4 % (1.7-9.3); % Neutrophils 78.6 % (42.2-75.2); Absolute Eosinophils 0.2 10^3/uL (0-0.7); Absolute Lymphocytes 0.9 10^3/uL (1.2-3.4); Absolute Monocytes 0.4 10^3/uL (0.1-0.6); Absolute Neutrophils 5.3 10^3/uL (1.4-6.5); Hematocrit 31.7 % (39.0-52.0); Hemoglobin 10.8 g/dL (13.0-18.0); Mean Corp Hgb Conc. 34.1 g/dL (33.0-37.0); Mean Corpuscular Hgb 32.6 pg (27.0-31.0); Mean Corpuscular Volume 95.8 fL (80.0-94.0); Mean Platelet Volume 10.2 fL (7.4-10.4); Nucleated Red Blood Cells % 0 % (-); Platelet Count 323 10^3/uL (130-400); Red Blood Cell Count 3.31 10^6/uL (4.70-6.10); Red Cell Dist. Width 13.8 % (11.5-14.5); White Blood Cell Count 6.7 10^3/uL (4.8-10.8)
[2023-10-07 17:09] LABS: ALT (SGPT) 19 U/L (0-50); AST (SGOT) 18 U/L (17-59); Alkaline Phosphatase 94 U/L (38-126); Blood Urea Nitrogen 18 mg/dl (9-20); Calcium 8.6 mg/dl (8.4-10.2); Carbon Dioxide 19 mmol/L (22-30); Chloride 112 mmol/L (98-107); Glucose 90 mg/dl (70-99); Lactic Acid 0.8 mmol/L (0.7-2.0); Sodium 137 mmol/L (135-145); Total Bilirubin 0.8 mg/dl (0.2-1.3); Total Protein 5.6 g/dl (6.3-8.2); eGFR 14.78
[2023-10-07 18:00] VITALS: BP 125/75
[2023-10-07] MEDS: MORPHINE SULFATE 4 MG IV (18:50)
[2023-10-07] MEDS: ZOFRAN 4 MG IV (18:50)
[2023-10-07 18:55] VITALS: BP 148/86
[2023-10-07 19:00] VITALS: BP 145/86
== END 2023-10-07 19:44 | disposition home or self-care (01) ==
LOC: EMR 14:31
PROVIDERS: Physician Assistant; EMERGENCY PHYSICIAN Emergency Medicine
DX: E86.0 Dehydration (principal); R10.12 Left upper quadrant pain; R10.13 Epigastric pain; I12.9 Hypertensive chronic kidney disease with stage 1 through stage 4 chronic kidney disease, or unspecified chronic kidney disease; N18.9 Chronic kidney disease, unspecified; K21.9 Gastro-esophageal reflux disease without esophagitis; E78.00 Pure hypercholesterolemia, unspecified; E80.4 Gilbert syndrome; Z87.442 Personal history of urinary calculi; Z87.891 Personal history of nicotine dependence; Z98.84 Bariatric surgery status; Z98.890 Other specified postprocedural states; Z88.6 Allergy status to analgesic agent; Z88.1 Allergy status to other antibiotic agents; Z91.030 Bee allergy status; Z88.5 Allergy status to narcotic agent; Z91.048 Other nonmedicinal substance allergy status
CPT/HCPCS: 99284; 96374; 96375; 96361; 74176; 80053; 83605; 85025; 87040

== ENCOUNTER 2024-02-20 07:54 | Day surgery (SDC) | payer MEDICARE, OTHER, SELFPAY ==
[2024-01-29 10:11] VITALS: BMI 36.6
[2024-02-20] VITALS (16 sets, daily range): BP systolic 98–110; BP diastolic 66–81
--- NOTE | 2024-02-20 12:41 | ITS.CL.ABL ---
[facility] - Ablation
Ablation
Procedure Report:
AFIB ablation:
Mr. Negrete is a very pleasant 78 yr old gentleman with symptomatic persistent AF s/p AF ablation 2021 with PVI (Radiofrequency), sick sinus syndrome status post dual-chamber pacemaker had developed perforated abdominal viscus with recurrent
atrial fibrillation/flutter which was highly symptomatic and is recommended a redo AF ablation.
Date of the Procedure:
02/20/2024
Indications:
Persistent with recurrent atrial fibrillation
Pre-Operative Diagnosis:
Persistent with recurrent atrial fibrillation
Post-Operative Diagnosis:
Persistent with recurrent atrial fibrillation
Procedure Performed:
Atrial fibrillation ablation with Pulsed-Field approach for Posterior wall isolation
Performing Physician:
Chacha Saul MD
Assistants:
EP staff
Anesthesia:
See anesthesia records
Detailed Description of the Procedure:
Written informed consent was obtained from the patient after a full explanation of the risks and benefits of the procedure including the risks of sedation and anesthesia.
The patient was brought to the electrophysiology laboratory in stable condition in fasting state. Continuous electrocardiographic and hemodynamic monitoring was initiated.
The pacemaker was interrogated and device was changed from 60 to 70 bpm. Patient is atrially paced with MVP mode.
The initial rhythm was atrial paced rhythm.
The procedure site was meticulously prepared with surgical scrub and allowed to dry with no pooling. Sterile draping was applied to cover the procedure site. The image intensifier was draped with sterile bag and positioned over the patient. After
infusion of local anesthetic, vascular access was obtained under ultrasound guidance and sheaths were placed over guide wire as detailed below.
Sheath and Catheter Placement:
The following catheters / sheaths were placed
Sheaths:
��������� 17Fr steerable sheath (Faradrive�, [place]) in right femoral
��������� 9Fr in right femoral vein
Catheters:
��������� VASU HD Grid mapping catheter � at locations of RA, LA
��������� Farawave� PFA catheter
��������� ICE catheter -AcuNav - at locations of RA, SVC, and RV.
Intracardiac ECHO:
An 8-[place] AcuNav intracardiac ECHO (ICE) probe was advanced through the 9-[place] sheath in the right femoral vein into the right atrium under fluoroscopic and ICE ultrasound image guidance and a baseline ECHO study was performed. The left atrial
size was dilated. There was moderate tricuspid regurgitation. The aortic valve was grossly normal. There was normal left ventricular systolic functions. There is trace pericardial effusion. All the four veins were identified and has flow identified.
During the procedure, ICE was used for monitoring of complications, guidance of trans-septal puncture, monitor the catheter position and tracking ablation lesions. No change in the pericardial space noted throughout the procedure.
Trans-septal Puncture:
Heparin was initiated and infused to maintain appropriate ACT. A J-tipped guidewire was advanced through the 8-[place] sheath in the right femoral vein into the superior vena cava under fluoroscopic and ICE guidance. The 9-[place] sheath was exchanged
for a Faradrive sheath which was advanced into the superior vena cava. A transseptal RF pigtail via Faradrive connect system was utilized to perform the trans-septal puncture. The apparatus was withdrawn until it was in contact with the fossa
ovalis. The position was adjusted based on fluoroscopy and ultrasound images from ICE. Under fluoroscopic, hemodynamic and ICE ultrasound guidance, left atrium was cannulated by applying RF energy. Once atrial septum was cannulated, the pigtail wire
was advanced through the needle into the left atrium. The guide wire was advanced into the left superior pulmonary vein. Both the sheath and the dilator was advanced into the left atrium. The dilator was withdrawn. Blood was aspirated from the
Faradrive sheath and arterial blood confirmed. The sheath was flushed. Saline injection noted into the left atrium on ICE. The mapping catheter was advanced in the sheath into the left pulmonary vein. Left atrial pressure was measured.
3D Electroanatomic Mapping:
Using the HD Grid catheter advanced through sheath into the left atrium, an electroanatomic map (EAM) of the left atrium was created using HypePoints mapping system. The map was used for localization of catheter position and tacking of ablation
lesions.
The EAM of the left atrium showed 4 pulmonary veins with all 4 veins electrically isolated from the body the LA. It showed scattered small areas of scar on the posterior and anterior wall of the LA. the roofline was still intact with no elected
currently moving across the posterior wall.� However, there were normal electrical connections both on the anterior and inferior aspects of the posterior wall with quite narrow WACA circles. The LA was dilated in size.
Following the EAM, preparation were made for ablation.
Ablation:
Ablation # 1: Pulmonary vein Isolation:
Using Farave pulsed wave ablation system, pulmonary vein isolation was achieved by extending the WACA lesions. Pulm veins were isolated but narrow WACA lesions were extended to create a wider WACA circulation site.�
Ablation # 2: Posterior wall isolation:
Using the pulsed field ablation catheter, the catheter was placed on the posterior wall and moved around the posterior wall to have adequate contact and ablations were placed isolating the posterior wall.
Post ablation Electroanatomic mapping:
Once ablation was completed, the EAM of the LA was done again in sinus rhythm with excellent demarcation of LA myocardium and isolated antral tissue. There was dissociated signals were noted in the veins as well.
The SOSA had healthy signals and was not isolated.
EPS and Confirmation of the PVI and bidirectional block:
Following achievement of entrance block at the pulmonary veins, pacing from the HD catheter in each of the four veins at 10 milliamps for 2 milliseconds showed entrance and exit block. All PVI were rechecked at the end of the case and remained
isolated with dissociated and local capture with pacing. Entrance and exit block were demonstrated in all veins.
Procedure End
ICE study was done again that showed no epicardial accumulation. No complications noted.
Following the completion of the EP study, catheters were removed. Protamine 40 mg was given at the end of the procedure and ACT was checked repeatedly. The sheaths were removed and hemostasis achieved with manual compression after acceptable ACT is
achieved.
Left atrial Pressure:
Pre-Procedure: Mean LA pressure was 16mmHg
Post-Procedure: Mean LA pressure was 17mmHg
Post-Procedure: Mean LR pressure was 14mmHg
Fluoro time:
2.0min / DAP 1.9
Estimated Blood loss:
<10 cc
Specimens Removed:
None.
Implants / Devices:
None
Urine output:
None
Packs / Drains/ Tubes:
None
Instrument / Sponge Count Correct:
Yes
Complications of the Procedure:
None
Condition of Patient at Time of Transfer:
Hemodynamically stable with no neurological or vascular compromise.
Summary:
Successful atrial fibrillation ablation with Pulsed Field approach for posterior wall isolation along with pulm vein isolation
Figures from the Procedure:
Figure 1: The electroanatomic mapping (EAM) of the left atrium with bipolar voltage (purple indicates normal electrical activity with prather as no myocardial muscle electric activity indicating a line of block or scar.
--- NOTE | 2024-02-20 15:38 | W.PN.UPDATE ---
Update Note
Progress Note Update
78 yo WM s/p redo PVI (same day) He denies cp, sob, viola clears, EKG Apaced, R fem site c/d/i vascade closure. He will continue OAC Xarelto dose at home tonight. He will have BMP check in 1 week. Activity restrictions reviewed. HE will f/u [facility] in 2
weeks. He is for d/c home after 330p if groin stable and able to void.
Procedure Performed:
Atrial fibrillation ablation with Pulsed-Field approach for Posterior wall isolation
== END 2024-02-20 16:35 | disposition home or self-care (01) ==
LOC: CATH 07:54
PROVIDERS: ATTENDING PHYSICIAN Internal Medicine Cardiovascular Disease
DX: I48.19 Other persistent atrial fibrillation (principal); I48.4 Atypical atrial flutter; I49.5 Sick sinus syndrome; I12.9 Hypertensive chronic kidney disease with stage 1 through stage 4 chronic kidney disease, or unspecified chronic kidney disease; E78.5 Hyperlipidemia, unspecified; E66.9 Obesity, unspecified; Z68.36 Body mass index [BMI] 36.0-36.9, adult; G47.33 Obstructive sleep apnea (adult) (pediatric); G62.9 Polyneuropathy, unspecified; R26.9 Unspecified abnormalities of gait and mobility; M19.90 Unspecified osteoarthritis, unspecified site; N18.4 Chronic kidney disease, stage 4 (severe); Z98.890 Other specified postprocedural states; F41.9 Anxiety disorder, unspecified; N40.0 Benign prostatic hyperplasia without lower urinary tract symptoms; K21.9 Gastro-esophageal reflux disease without esophagitis; G47.00 Insomnia, unspecified; D64.9 Anemia, unspecified; Z98.84 Bariatric surgery status; Z90.49 Acquired absence of other specified parts of digestive tract; Z96.653 Presence of artificial knee joint, bilateral; Z79.899 Other long term (current) drug therapy; Z79.1 Long term (current) use of non-steroidal anti-inflammatories (NSAID); Z79.01 Long term (current) use of anticoagulants; Z79.891 Long term (current) use of opiate analgesic; Z88.5 Allergy status to narcotic agent; Z91.030 Bee allergy status; Z88.1 Allergy status to other antibiotic agents
CPT/HCPCS: C1732; C1892; C1759; 85347; 93005; 93656; 93657; C1733; C1760; C1766

== ENCOUNTER → 2024-03-05 12:54 | Outpatient (REF) | payer MEDICARE, OTHER, SELFPAY ==
[2024-03-05 14:28] LABS: Albumin 3.5 g/dl (3.5-5.0); Blood Urea Nitrogen 37 mg/dl (9-20); Carbon Dioxide 22 mmol/L (22-30); Chloride 105 mmol/L (98-107); Glucose 88 mg/dl (70-99); Phosphorus 4.3 mg/dl (2.5-4.5); Potassium 5.2 mmol/L (3.5-5.1); Sodium 140 mmol/L (135-145); eGFR 8.57
== END ==
LOC: REG 12:54
PROVIDERS: ATTENDING PHYSICIAN Specialist
DX: N17.9 Acute kidney failure, unspecified (principal)
CPT/HCPCS: 36415; 80069

== ENCOUNTER → 2024-03-09 12:08 | Outpatient (REF) | payer MEDICARE, OTHER, SELFPAY ==
[2024-03-09 14:13] LABS: Blood Urea Nitrogen 33 mg/dl (9-20); Calcium 8.9 mg/dl (8.4-10.2); Carbon Dioxide 21 mmol/L (22-30); Chloride 105 mmol/L (98-107); Glucose 84 mg/dl (70-99); Potassium 4.9 mmol/L (3.5-5.1); Sodium 141 mmol/L (135-145)
== END ==
LOC: REG 12:08
PROVIDERS: ATTENDING PHYSICIAN Specialist
DX: N18.32 Chronic kidney disease, stage 3b (principal)
CPT/HCPCS: 36415; 80048

== ENCOUNTER → 2024-03-12 10:51 | Outpatient (REF) | payer MEDICARE, OTHER, SELFPAY ==
[2024-03-12 11:26] LABS: % Basophils 0.6 % (0-2); % Eosinophils 2.9 % (0-6); % Immature Granulocytes 0.2 % (0-0.5); % Lymphocytes 19.6 % (20.5-51.1); % Monocytes 5.3 % (1.7-9.3); % Neutrophils 71.4 % (42.2-75.2); Absolute Eosinophils 0.2 10^3/uL (0-0.7); Absolute Lymphocytes 1.2 10^3/uL (1.2-3.4); Absolute Monocytes 0.3 10^3/uL (0.1-0.6); Absolute Neutrophils 4.4 10^3/uL (1.4-6.5); Hematocrit 36.9 % (39.0-52.0); Hemoglobin 12.5 g/dL (13.0-18.0); Mean Corp Hgb Conc. 33.9 g/dL (33.0-37.0); Mean Corpuscular Hgb 33.4 pg (27.0-31.0); Mean Corpuscular Volume 98.7 fL (80.0-94.0); Mean Platelet Volume 10.3 fL (7.4-10.4); Nucleated Red Blood Cells % 0 % (-); Platelet Count 201 10^3/uL (130-400); Red Blood Cell Count 3.74 10^6/uL (4.70-6.10); Red Cell Dist. Width 13.9 % (11.5-14.5); White Blood Cell Count 6.2 10^3/uL (4.8-10.8)
[2024-03-12 11:27] LABS: Urine Albumin 1+ (Neg - Trace); Urine Bilirubin Negative (Negative); Urine Character Clear (Clear); Urine Color Yellow; Urine Glucose Negative (Negative); Urine Ketone Negative (Negative); Urine Leukocyte Negative (Negative); Urine Nitrite Negative (Negative); Urine Occult Blood Negative (Negative); Urine Urobilinogen 1+ (Neg - 1+); Urine pH 6.5 (5.0-9.0)
[2024-03-12 11:46] LABS: Urine Bacteria Few (Negative); Urine Squamous Cell 0-2 /LPF (Few)
[2024-03-12 11:47] LABS: Urine Red Blood Cell 0-2 /HPF (0-2); Urine White Cell 0-2 /HPF (0-5)
[2024-03-12 12:09] LABS: Albumin 3.6 g/dl (3.5-5.0); Blood Urea Nitrogen 33 mg/dl (9-20); Calcium 8.9 mg/dl (8.4-10.2); Carbon Dioxide 23 mmol/L (22-30); Chloride 105 mmol/L (98-107); Glucose 93 mg/dl (70-99); Phosphorus 3.9 mg/dl (2.5-4.5); Potassium 4.8 mmol/L (3.5-5.1); Sodium 142 mmol/L (135-145); eGFR 9.09
== END ==
LOC: REG 10:51
PROVIDERS: ATTENDING PHYSICIAN Specialist
DX: N20.0 Calculus of kidney (principal); N26.1 Atrophy of kidney (terminal); I10 Essential (primary) hypertension; N18.30 Chronic kidney disease, stage 3 unspecified; E87.6 Hypokalemia
CPT/HCPCS: 36415; 80069; 81003; 81015; 85025

== ENCOUNTER → 2024-03-13 08:53 | Outpatient (REF) | payer MEDICARE, OTHER, SELFPAY | LOC: HWRAD 08:53 | PROVIDERS: ATTENDING PHYSICIAN Specialist | DX: N20.0 Calculus of kidney (principal); N26.1 Atrophy of kidney (terminal); I10 Essential (primary) hypertension; N18.30 Chronic kidney disease, stage 3 unspecified; E87.6 Hypokalemia | CPT/HCPCS: 76775 ==

== ENCOUNTER → 2024-04-27 08:24 | Outpatient (REF) | payer MEDICARE, OTHER, SELFPAY ==
[2024-04-27 09:36] LABS: Albumin 3.4 g/dl (3.5-5.0); Blood Urea Nitrogen 36 mg/dl (9-20); Carbon Dioxide 20 mmol/L (22-30); Chloride 105 mmol/L (98-107); Glucose 88 mg/dl (70-99); Magnesium 2.3 mg/dl (1.6-2.3); Phosphorus 5.3 mg/dl (2.5-4.5); Sodium 138 mmol/L (135-145); eGFR 6.49
[2024-04-27 09:40] LABS: Potassium 4.5 mmol/L (3.5-5.1)
== END ==
LOC: REG 08:24
PROVIDERS: ATTENDING PHYSICIAN Specialist
DX: N17.9 Acute kidney failure, unspecified (principal)
CPT/HCPCS: 36415; 80069; 83735

== ENCOUNTER → 2024-05-06 08:50 | Outpatient (REF) | payer MEDICARE, OTHER, SELFPAY ==
[2024-05-06 09:55] LABS: Albumin 3.2 g/dl (3.5-5.0); Blood Urea Nitrogen 37 mg/dl (9-20); Calcium 8.9 mg/dl (8.4-10.2); Carbon Dioxide 23 mmol/L (22-30); Chloride 106 mmol/L (98-107); Glucose 88 mg/dl (70-99); Phosphorus 3.9 mg/dl (2.5-4.5); Potassium 4.6 mmol/L (3.5-5.1); Sodium 139 mmol/L (135-145); eGFR 6.59
[2024-05-06 11:01] LABS: PSA, Total - Diagnostic 0.62 ng/ml (0.0-4.0)
== END ==
LOC: REG 08:50
PROVIDERS: ATTENDING PHYSICIAN Specialist; OTHER PHYSICIAN Specialist
DX: N20.0 Calculus of kidney (principal); I10 Essential (primary) hypertension; N17.9 Acute kidney failure, unspecified; N40.1 Benign prostatic hyperplasia with lower urinary tract symptoms; N26.1 Atrophy of kidney (terminal)
CPT/HCPCS: 36415; 80069; 84153

== ENCOUNTER → 2024-06-01 09:14 | Outpatient (REF) | payer MEDICARE, OTHER, SELFPAY ==
[2024-06-01 11:13] LABS: ALT (SGPT) 19 U/L (0-50); AST (SGOT) 19 U/L (17-59); Albumin 3.7 g/dl (3.5-5.0); Alkaline Phosphatase 96 U/L (38-126); Blood Urea Nitrogen 35 mg/dl (9-20); Calcium 9.5 mg/dl (8.4-10.2); Carbon Dioxide 22 mmol/L (22-30); Chloride 99 mmol/L (98-107); Glucose 89 mg/dl (70-99); Potassium 3.7 mmol/L (3.5-5.1); Sodium 138 mmol/L (135-145); Total Protein 6.3 g/dl (6.3-8.2)
== END ==
LOC: REG 09:14
PROVIDERS: ATTENDING PHYSICIAN Specialist
DX: N17.9 Acute kidney failure, unspecified (principal)
CPT/HCPCS: 36415; 80053; 83970

== ENCOUNTER → 2024-06-30 07:48 | Outpatient (REF) | payer MEDICARE, OTHER, SELFPAY ==
[2024-06-30 10:15] LABS: ALT (SGPT) 26 U/L (0-50); AST (SGOT) 22 U/L (17-59); Albumin 2.9 g/dl (3.5-5.0); Alkaline Phosphatase 122 U/L (38-126); Blood Urea Nitrogen 42 mg/dl (9-20); Calcium 8.8 mg/dl (8.4-10.2); Carbon Dioxide 22 mmol/L (22-30); Chloride 104 mmol/L (98-107); Glucose 81 mg/dl (70-99); Potassium 4.3 mmol/L (3.5-5.1); Sodium 137 mmol/L (135-145); Total Bilirubin 1.4 mg/dl (0.2-1.3); Total Protein 5.7 g/dl (6.3-8.2); eGFR 6.69
== END ==
LOC: REG 07:48
PROVIDERS: ATTENDING PHYSICIAN Specialist
DX: N17.9 Acute kidney failure, unspecified (principal)
CPT/HCPCS: 36415; 80053

== ENCOUNTER → 2024-08-06 08:18 | Outpatient (REF) | payer MEDICARE, OTHER, SELFPAY ==
[2024-08-06 10:11] LABS: Albumin 2.9 g/dl (3.5-5.0); Blood Urea Nitrogen 37 mg/dl (9-20); Calcium 9.3 mg/dl (8.4-10.2); Carbon Dioxide 20 mmol/L (22-30); Chloride 106 mmol/L (98-107); Glucose 89 mg/dl (70-99); Phosphorus 5.4 mg/dl (2.5-4.5); Potassium 4.4 mmol/L (3.5-5.1); Sodium 141 mmol/L (135-145); eGFR 4.95
== END ==
LOC: REG 08:18
PROVIDERS: ATTENDING PHYSICIAN Specialist
DX: N17.9 Acute kidney failure, unspecified (principal)
CPT/HCPCS: 36415; 80069

== ENCOUNTER → 2024-09-08 09:37 | Outpatient (REF) | payer MEDICARE, OTHER, SELFPAY ==
[2024-09-08 10:07] LABS: % Basophils 1.1 % (0-2); % Eosinophils 5.4 % (0-6); % Immature Granulocytes 0.3 % (0-0.5); % Lymphocytes 31.5 % (20.5-51.1); % Monocytes 5.8 % (1.7-9.3); % Neutrophils 55.9 % (42.2-75.2); Absolute Basophils 0.1 10^3/uL (0-0.2); Absolute Eosinophils 0.4 10^3/uL (0-0.7); Absolute Lymphocytes 2.1 10^3/uL (1.2-3.4); Absolute Monocytes 0.4 10^3/uL (0.1-0.6); Absolute Neutrophils 3.7 10^3/uL (1.4-6.5); Hemoglobin 11.5 g/dL (13.0-18.0); Mean Corp Hgb Conc. 33.8 g/dL (33.0-37.0); Mean Corpuscular Volume 100.6 fL (80.0-94.0); Mean Platelet Volume 9.6 fL (7.4-10.4); Nucleated Red Blood Cells % 0 % (-); Platelet Count 215 10^3/uL (130-400); Red Blood Cell Count 3.38 10^6/uL (4.70-6.10); Red Cell Dist. Width 13.8 % (11.5-14.5); White Blood Cell Count 6.5 10^3/uL (4.8-10.8)
== END ==
LOC: REG 09:37
PROVIDERS: ATTENDING PHYSICIAN Specialist
DX: N17.9 Acute kidney failure, unspecified (principal); I10 Essential (primary) hypertension
CPT/HCPCS: 36415; 85025

== ENCOUNTER → 2024-09-14 12:24 | Outpatient (REF) | payer MEDICARE, OTHER, SELFPAY ==
[2024-09-14 12:45] LABS: % Basophils 1.3 % (0-2); % Eosinophils 4.2 % (0-6); % Immature Granulocytes 0.3 % (0-0.5); % Lymphocytes 24.7 % (20.5-51.1); % Monocytes 5.8 % (1.7-9.3); % Neutrophils 63.7 % (42.2-75.2); Absolute Basophils 0.1 10^3/uL (0-0.2); Absolute Eosinophils 0.3 10^3/uL (0-0.7); Absolute Lymphocytes 1.7 10^3/uL (1.2-3.4); Absolute Monocytes 0.4 10^3/uL (0.1-0.6); Absolute Neutrophils 4.4 10^3/uL (1.4-6.5); Hematocrit 34.1 % (39.0-52.0); Hemoglobin 11.6 g/dL (13.0-18.0); Mean Corpuscular Hgb 34.5 pg (27.0-31.0); Mean Corpuscular Volume 101.5 fL (80.0-94.0); Mean Platelet Volume 9.5 fL (7.4-10.4); Nucleated Red Blood Cells % 0 % (-); Platelet Count 203 10^3/uL (130-400); Red Blood Cell Count 3.36 10^6/uL (4.70-6.10); Red Cell Dist. Width 14.1 % (11.5-14.5)
[2024-09-14 13:49] LABS: Albumin 2.8 g/dl (3.5-5.0); Blood Urea Nitrogen 39 mg/dl (9-20); Calcium 8.9 mg/dl (8.4-10.2); Carbon Dioxide 17 mmol/L (22-30); Chloride 112 mmol/L (98-107); Glucose 97 mg/dl (70-99); Phosphorus 5.3 mg/dl (2.5-4.5); Potassium 4.4 mmol/L (3.5-5.1); Sodium 139 mmol/L (135-145); eGFR 5.14
== END ==
LOC: REG 12:24
PROVIDERS: ATTENDING PHYSICIAN Specialist
DX: N17.9 Acute kidney failure, unspecified (principal); I10 Essential (primary) hypertension
CPT/HCPCS: 36415; 80069; 85025